=== PATIENT | female | born 1945 | race Caucasian/White ===

== ENCOUNTER → 2017-09-05 | Day surgery (SDC) | payer OTHER ==
[2017-08-21 09:21] VITALS: BMI 32.0
--- NOTE | 2017-08-21 09:59 | PAT Medication Instructions ---
Service Date Aug 21, 2017. Current Home Medication List Acetaminophen (Tylenol), 650 MG PO PRN Albuterol Hfa (Ventolin Hfa), 2-4 PUFFS INH Q6H PRN for SOB/Wheezing Carbidopa/Levodopa (Sinemet 25MG/100MG), 1 TAB PO 5XADAY Cetirizine (Zyrtec), 10 MG PO PRN Cholecalciferol (Vitamin D3), 1 TAB PO QAM Duloxetine Hcl (Cymbalta), 60 MG PO QAM Esomeprazole Magnesium (Nexium), 40 MG PO QAM Ferrous Sulfate (Ferrous Sulfate), 325 MG PO QAM Fluticasone Furoate-Vilanterol (Breo Ellipta), 1 PUFF INH QAM Fluticasone Propionate (Nasal) (Flonase Allergy Relief), 2 SPRAYS INTNAS QAM Gabapentin (Neurontin), 100 MG PO TID Gabapentin (Neurontin), 800 MG PO TID Ketorolac Tromethamine (Ophth) (Acuvail), 1 DROP OPR HS Levothyroxine Sodium (Levothyroxine Sodium), 1 TAB PO QAM Losartan Potassium (Cozaar), 25 MG PO QAM Meloxicam (Mobic), 7.5 MG PO QAM Montelukast Sodium (Singulair), 10 MG PO HS Multivitamin (Multivitamin), 1 TAB PO QAM Pseudoephedrine-Guaifenesin (Mucinex D), 1 TAB PO BID PRN for PRN Pyridoxine (Vitamin B6), 100 MG PO QPM Ropinirole (Requip), 0.25-0.5 MG PO HS Travoprost (Travatan Z), 1 DROPS OPB BID [Nasal Saline], 2 SPRAYS INTNAS BID PRN for senior lead developer Instructions For Your Scheduled Surgery = Check with surgeon for instructions: Meloxicam (Mobic), 7.5 MG PO QAM - Hold the following medications the night prior to surgery: Ropinirole (Requip), 0.25-0.5 MG PO HS - Hold the following medications the morning of surgery: Cetirizine (Zyrtec), 10 MG PO PRN Cholecalciferol (Vitamin D3), 1 TAB PO QAM Ferrous Sulfate (Ferrous Sulfate), 325 MG PO QAM Losartan Potassium (Cozaar), 25 MG PO QAM Multivitamin (Multivitamin), 1 TAB PO QAM Pseudoephedrine-Guaifenesin (Mucinex D), 1 TAB PO BID PRN for PRN - Take the following medications the morning of surgery with a sip of water: [Nasal Saline], 2 SPRAYS INTNAS BID PRN for RN (if needed) Travoprost (Travatan Z), 1 DROPS OPB BID Levothyroxine Sodium (Levothyroxine Sodium), 1 TAB PO QAM Gabapentin (Neurontin), 100 MG PO TID Gabapentin (Neurontin), 800 MG PO TID Fluticasone Furoate-Vilanterol (Breo Ellipta), 1 PUFF INH QAM Fluticasone Propionate (Nasal) (Flonase Allergy Relief), 2 SPRAYS INTNAS QAM Esomeprazole Magnesium (Nexium), 40 MG PO QAM Duloxetine Hcl (Cymbalta), 60 MG PO QAM Acetaminophen (Tylenol), 650 MG PO PRN (if needed) Albuterol Hfa (Ventolin Hfa), 2-4 PUFFS INH Q6H PRN for SOB/Wheezing (if needed) Carbidopa/Levodopa (Sinemet 25MG/100MG), 1 TAB PO 5XADAY If you have any questions please call us at [phone] or [phone] or [phone]
--- NOTE | 2017-08-21 10:46 | DIAGNOSTIC IMAGING REPORT ---
CHEST 2 VIEWS ROUTINE CLINICAL HISTORY: Chronic cough. Preoperative chest. COMPARISON STUDY: February 2016 FINDINGS: The heart remains enlarged. There is aortic tortuosity. There is no failure. There is no focal pulmonary consolidation. There is stable linear scar/atelectatic change at the left lung base, as well as within the substernal region.[ Postsurgical changes are present within the lumbar spine. No pleural effusions are visualized. IMPRESSION: No active disease in the chest. Electronically signed by: Alejo Dobbins M.D. 08/21/2017 10:44 AM Dictated Date/Time: 08/21/2017 10:44 AM
[2017-08-21 10:52] LABS: BASO % 0.5 %; BASO ABS # 0.04 K/uL (0-0.2); EOS % 3.2 %; EOS ABS # 0.24 K/uL (0-0.5); HEMOGLOBIN 12.9 g/dL (12.0-16.0); IG# 0.01 K/uL (0.00-0.02); LYMPH % 25.5 %; LYMPH ABS # 1.92 K/uL (1.2-3.4); MEAN CORPUSCULAR HGB CONC 32.3 g/dl (32-36); MEAN PLATELET VOLUME 9.7 fL (7.4-10.4); MONO % 6.8 %; MONO ABS # 0.51 K/uL (0.11-0.59); NEUT % 63.9 %; NEUT ABS # 4.81 K/uL (1.4-6.5); PLATELET COUNT 320 K/uL (130-400); RED CELL DISTRIBUTION WIDTH CV 13.8 % (11.5-14.5); RED CELL DISTRIBUTION WIDTH SD 46.7 fL (36.4-46.3); WHITE BLOOD COUNT 7.53 K/uL (4.8-10.8)
[2017-08-21 12:05] LABS: CALCIUM 8.6 mg/dl (8.5-10.1); CREATININE 0.66 mg/dl (0.60-1.20); POTASSIUM 4.1 mmol/L (3.5-5.1)
[~2017-09-05] VITALS: Ht 157.5 cm; Wt 79.3 kg
[~2017-09-05] MED LIST: ACET-1311 PO; ACETAMINOPHEN 325 MG TAB PO PRN; ATROPINE SULFATE 0.1 MG/ML 5ML SYR IV PRN; BACITRACIN 50000 UNIT VIAL ONE; BUPIVACAINE/EPINEPHRINE 0.5% MPF 1:200,000 30 ML VIAL ONE; CARB25TA12 PO; CEFAZOLIN 1000MG IV PUSH 7.5 ML IV SCH; CETI10TA84 PO; CHOL1000 PO; DEXAMETHASONE SOD INJ 4 MG/ML VIAL ONE; DULO60CA44 PO; EpHEDrine SULFATE INJ 50 MG/ML AMP IV PRN; FENTANYL CITRATE INJ 50 MCG/1 ML 2 ML VIAL IV PRN; FENTANYL CITRATE INJ 50 MCG/1 ML 2 ML VIAL ONE; FERR1TAB62 PO; FLUT0.15 INTNAS; FLUT1INH INH; GABA-112 PO; GABA800T PO; GLYCOPYRROLATE INJ 0.2 MG/ML VIAL ONE; HYDR-5688 PO; HYDROCODONE/ACETAMIN 5/325MG TAB PO PRN; HYDROmorphone INJ 1 MG/ML SYR IV PRN; HYDROmorphone INJ 2 MG/ML SYR/VIAL IV PRN; HYDROmorphone INJ 2 MG/ML SYR/VIAL ONE; KETO0.45 OPR; KETOROLAC TROMETHAMINE 15 MG/ML VIAL IV. PRN; KETOROLAC TROMETHAMINE 30 MG/ML VIAL ONE; LABETALOL HCL IV 5 MG/ML 20ML IV PRN; LACTATED RINGER'S 1000ML 1,000 ML IV SCH; LEVO25TA5 PO; LIDOCAINE HCL 2% 2 ML VIAL (20MG/ML) ONE; LOSA1TAB PO; MELO7.5T5 PO; MEPERIDINE HCL 25 MG/ML CARP IV PRN; METOCLOPRAMIDE HCL INJ 5 MG/ML 2 ML VIAL ONE; MIDAZOLAM HCL 1 MG/ML 2ML VIAL ONE; MONT1TAB3 PO; MULT-506 PO; NASAL SALINE INTNAS; NEOSTIGMINE METHYLSULFATE 1 MG/ML 10ML VIAL ONE; NURSING VERBAL MED ORDER ONE; NXM/40 PO; ONDANSETRON INJ 2 MG/ML 2 ML VIAL IV PRN; ONDANSETRON INJ 2 MG/ML 2 ML VIAL ONE; PROPOFOL IV EMULSION 10 MG/ML 20 ML VIAL IV ONE; PSEU60TA80 PO; PYRI100T4 PO; ROCURONIUM BROMIDE 10 MG/ML 5 ML VIAL IV ONE; ROPI0.25 PO; TRAV0.00 OPB; VNTHFA/IN INH
[2017-09-05 06:20] VITALS: Ht 157.5 cm; Wt 79.3 kg
--- NOTE | 2017-09-05 07:34 | History & Physical Bridge Note ---
H&P Re-Evaluation Bridge Note: I have examined the patient, reviewed the History & Physical and in the interval since the performance of the History & Physical I have noted the following changes of clinical significance: No changes noted
--- NOTE | 2017-09-05 07:35 | History and Physical ---
History & Physical Date Sep 05, 2017. Chief Complaint Chronic back and leg pain History of Present Illness The patient is a 72 year old female with complaints of chronic back and leg pain Past Medical/Surgical History Medical Problems: (1) Lumbar stenosis with neurogenic claudication Additional History Hepatic Disease: No Endocrine Disorder: No Kidney Disease: No Hypertension: Yes Heart Disease: No Bleeding Tendencies: No Infectious Diseases: No Allergies Coded Allergies: Oxycodone (Verified Allergy, Unknown, HEADACHES, 09/05/17) Terbinafine (Verified Allergy, Unknown, HIVES, 09/05/17) Home Medications Scheduled Acetaminophen (Tylenol), 650 MG PO PRN Carbidopa/Levodopa (Sinemet 25MG/100MG), 1 TAB PO 5XADAY Cetirizine (Zyrtec), 10 MG PO PRN Cholecalciferol (Vitamin D3), 1 TAB PO QAM Duloxetine Hcl (Cymbalta), 60 MG PO QAM Esomeprazole Magnesium (Nexium), 40 MG PO QAM Ferrous Sulfate (Ferrous Sulfate), 325 MG PO QAM Fluticasone Furoate-Vilanterol (Breo Ellipta), 1 PUFF INH QAM Fluticasone Propionate (Nasal) (Flonase Allergy Relief), 2 SPRAYS INTNAS QAM Gabapentin (Neurontin), 100 MG PO TID Gabapentin (Neurontin), 800 MG PO TID Ketorolac Tromethamine (Ophth) (Acuvail), 1 DROP OPR HS Levothyroxine Sodium (Levothyroxine Sodium), 1 TAB PO QAM Losartan Potassium (Cozaar), 25 MG PO QAM Meloxicam (Mobic), 7.5 MG PO QAM Montelukast Sodium (Singulair), 10 MG PO HS Multivitamin (Multivitamin), 1 TAB PO QAM Pyridoxine (Vitamin B6), 100 MG PO QPM Ropinirole (Requip), 0.25-0.5 MG PO HS Travoprost (Travatan Z), 1 DROPS OPB BID Scheduled PRN Albuterol Hfa (Ventolin Hfa), 2-4 PUFFS INH Q6H PRN for SOB/Wheezing Pseudoephedrine-Guaifenesin (Mucinex D), 1 TAB PO BID PRN for PRN [Nasal Saline], 2 SPRAYS INTNAS BID PRN for RN Physical Examination Skin: warm/dry, no rash Eyes: normal inspection, EOMI, sclerae normal ENT: normal ENT inspection, pharynx normal Head: normocephalic, atraumatic Neck: supple, no adenopathy, trachea midline Respiratory/Chest: lungs clear, normal breath sounds, no respiratory distress Cardiovascular: regular rate, rhythm, no edema, no murmur Abdomen / GI: normal bowel sounds, non tender Back: normal inspection Extremities: normal inspection, normal range of motion Neurologic/Psych: no motor/sensory deficits, alert, normal reflexes, oriented x 3 Diagnosis Chronic back and leg pain Plan of Treatment Spinal cord stimulator trial
--- NOTE | 2017-09-05 08:36 | [facility] Operative Report ---
Operative Report Operative Date Sep 05, 2017. Pre-Operative Diagnosis Chronic back and leg pain Post-Operative Diagnosis Chronic back and leg pain Procedure(s) Performed 1. T10 laminotomy. #2 implantation of spinal cord stimulator paddle with temporary leads. Surgeon Dr. Swartz Perianesthesia Manager Surgeon(s) Starla Simon PA-C Estimated Blood Loss 10 ml Findings Findings consistent with diagnosis Specimens None per surgeon Anesthesia Type General Description of Procedure Patient was met with preoperatively case discussed all questions addressed. After informed consent obtained patient was taken to the operative suite underwent intubation and placed in a prone position on the Danilo table on top of the Favio frame. All bony prominences were well-padded eyes inspected to ensure no external pressure placed upon them. This point the thoracolumbar spine was prepped and draped in the normal sterile fashion. With the assistance of fluoroscopy identified the T10-11 disc space. A midline incision was created overlying this region. Sharp dissection with the assistance of Bovie cautery was performed down to and exposing the interlaminar space. A self -retaining ring retractor was placed. I verified my position with fluoroscopy. A midline T10 laminotomy was then performed. Was able to place a 16-lead dorsal column stimulator paddle within the canal. Verify our position with fluoroscopy. Temporary leads were then attached and via a trocar placed to the left flank. The system was tested for efficacy. Incision was then copious irrigated and closed with subcutaneous Vicryl and 4-0 Monocryl for final skin closure. Steri-Strips sterile dressings placed. Patient weakened taken back in stable condition. Please note Starla Haas present throughout the entire procedure involved in patient positioning complex portions of the surgery and fashion closure. I attest to the content of the Intraoperative Record and any orders documented therein. Any exceptions are noted below.
--- NOTE | 2017-09-05 08:41 | Discharge Instructions ---
Discharge Instructions Date of Service Sep 05, 2017. Admission Reason for Admission: Lumbar Postlaminectomy Syndrome Discharge Discharge Diagnosis / Problem: chronic pain Discharge Goals Goal(s): Decrease discomfort Activity Recommendations Activity Limitations: per Instructions/Follow-up section . Instructions / Follow-Up Instructions / Follow-Up ACTIVITY RECOMMENDATIONS: SELF CARE INSTRUCTIONS AFTER A LAMINECTOMY 1. No prolonged sitting (less than 30 minutes for the first 3 weeks after surgery). 2. No bending, lifting more than 5 pounds, or twisting (roll like a log when turning in bed). 3. You may shower 3 days after surgery if no drainage from wound. Thoroughly dry wound. Do not soak in the tub. 4. Please walk as much as you can for exercise. Gradually increase the distance that you walk as your endurance increases. 5. You may drive in 7-10 days if you are comfortable and no longer requiring pain medications. SPECIAL CARE INSTRUCTIONS: VERY IMPORTANT TO READ AND REVIEW A. Your surgical incision has been closed with a cosmetic suture under the skin that will dissolve in about 6 weeks. In 14 days, you can use a pair of clean scissors and cut the suture that is left outside of the skin at the ends of your incision. B. Complications are uncommon, but please contact us if you have any signs or symptoms of: 1. wound infection (fever higher than 102.5 degrees F, redness, separation of wound, drainage, or increasing pain from the incision) 2. blood clots in legs (pain, swelling, redness and warmth in legs) 3. urinary tract infection (fever higher than 102.5 degrees, burning upon urination or increased frequency of urination) 4. nerve problems (inability to walk on your toes or heels, numbness, loss of bowel or bladder control) 5. any other symptoms that concern you. C. Please call the office at if you have any concerns or questions about your operation or recovery. MANAGING PAIN AFTER SPINAL SURGERY 1. Narcotic medication is intended for short-term use and will be provided for surgical pain. Surgical pain usually lasts for a period of 4-6 weeks. Narcotic medication includes Percocet, Vicodin, Darvocet, Tylenol #3 or Lortab. 2. Longer-term pain is more appropriately treated with non-narcotic medication such as Tylenol ES. 3. Muscle spasm is not appropriately treated with narcotics. Muscle relaxers such as Soma, Flexeril or Skelaxin can be used along with Tylenol ES. 4. Remember that we all live with some "aches and pains". This is not unusual or uncommon after an injury or as we get older. 5. We will provide appropriate medication within the normal guidelines of their prescribed use. We will also be very cautious and aware of potential abuse and extended duration of patients' medication needs. 6. Please allow 2-3 days to process refills. Prescriptions will not be mailed but must be picked up at the office. FOLLOW UP VISIT: Keep your scheduled follow-up appointment. Any questions, please call the office at . Current Hospital Diet Patient's current hospital diet: Discharge Diet Recommended Diet: Regular Diet Procedures Procedures Performed: 1. T10 laminotomy. #2 implantation of spinal cord stimulator paddle with temporary leads. Pending Studies Studies pending at discharge: no Medical Emergencies . Who to Call and When: Medical Emergencies: If at any time you feel your situation is an emergency, please call 911 immediately. . Non-Emergent Contact Non-Emergency issues call your: Primary Care Provider . "Provider Documentation" section prepared by Preet Swartz. .
--- NOTE | 2017-09-05 08:48 | DIAGNOSTIC IMAGING REPORT ---
SPINE ONE VIEW, ANY LEVEL HISTORY: 72 years-old Female SPINAL STIM TRIAL status post placement of a spinal cord stimulator device COMPARISON: Spot fluoroscopic images of the lumbar spine 04/26/2016 TECHNIQUE: Single AP projection of the spine was utilized with 19.2 seconds fluoroscopy time FINDINGS: Dual lead spinal stimulator device is noted overlying the midline of the lower thoracic spine, exact level not confirmed secondary to only 1 zoomed image submitted for review. Orthopedic retraction device overlies the spine. IMPRESSION: Fluoroscopic assistance as above. Please see operative report for further details. The above report was generated using voice recognition software. It may contain grammatical, syntax or spelling errors. Electronically signed by: Kedar Floyd M.D. 09/05/2017 8:47 AM Dictated Date/Time: 09/05/2017 8:45 AM
--- NOTE | 2017-09-05 09:36 | Anesthesiology Progress Note ---
Anesthesia Post Op Note Date & Time Sep 05, 2017 at 09:35 Vital Signs Pain Intensity: 5.0 Vital Signs Past 12 Hours Date Time Temp Pulse Resp B/P (MAP) Pulse Ox O2 Delivery O2 Flow Rate FiO2 09/05/17 09:11 171/83 09/05/17 09:07 71 16 09/05/17 09:07 91 16 93 09/05/17 09:06 162/78 09/05/17 09:02 90 21 97 09/05/17 09:02 79 21 09/05/17 09:01 178/75 09/05/17 08:57 80 17 99 09/05/17 08:57 81 17 09/05/17 08:56 202/77 09/05/17 08:54 185/78 09/05/17 08:52 87 15 142/113 97 09/05/17 08:52 87 15 09/05/17 08:52 36.5 87 14 185/78 99 Oxymask 10 Notes Mental Status: alert / awake / arousable, participated in evaluation Pt Amnestic to Procedure: Yes Nausea / Vomiting: adequately controlled Pain: adequately controlled Airway Patency, RR, SpO2: stable & adequate BP & HR: stable & adequate Hydration State: stable & adequate Anesthetic Complications: no major complications apparent
[2017-09-05 09:59] VITALS: TEMP 36.8
[2017-09-05 10:02] VITALS: BP 132/91; PULSE 52; O2SAT 93
[2017-09-05 10:32] VITALS: BP 164/90; PULSE 50; O2SAT 95
== END | disposition home or self-care (01) ==
LOC: C.ACU 07:45
PROVIDERS: ATTEND Orthopaedic Surgery Orthopaedic Surgery of the Spine
DX: M54.9 Dorsalgia, unspecified (principal); G89.29 Other chronic pain; M79.606 Pain in leg, unspecified; J45.30 Mild persistent asthma, uncomplicated; I10 Essential (primary) hypertension; F32.9 Major depressive disorder, single episode, unspecified; F41.8 Other specified anxiety disorders; E03.8 Other specified hypothyroidism; E66.9 Obesity, unspecified; Z68.32 Body mass index [BMI] 32.0-32.9, adult; Z88.5 Allergy status to narcotic agent; Z79.899 Other long term (current) drug therapy; Z90.89 Acquired absence of other organs; Z98.890 Other specified postprocedural states; Z98.41 Cataract extraction status, right eye; Z98.42 Cataract extraction status, left eye; Z82.49 Family history of ischemic heart disease and other diseases of the circulatory system; Z82.3 Family history of stroke; Z83.3 Family history of diabetes mellitus

== ENCOUNTER → 2017-09-19 | Day surgery (SDC) | payer OTHER ==
[2017-08-21 09:31] VITALS: BMI 32.0
[~2017-09-19] VITALS: Ht 157.5 cm; Wt 79.3 kg
[~2017-09-19] MED LIST changes: +EpHEDrine SULFATE 50MG/5ML SYR ONE; +FLOSEAL HEMOSTATIC MATRIX 10ML TOP ONE; -KETOROLAC TROMETHAMINE 15 MG/ML VIAL IV. PRN; -KETOROLAC TROMETHAMINE 30 MG/ML VIAL ONE; -LABETALOL HCL IV 5 MG/ML 20ML IV PRN; -MEPERIDINE HCL 25 MG/ML CARP IV PRN; -METOCLOPRAMIDE HCL INJ 5 MG/ML 2 ML VIAL ONE; -NURSING VERBAL MED ORDER ONE; +PHENYLEPHRINE 100MCG/ML 5ML SYR ONE; -ROCURONIUM BROMIDE 10 MG/ML 5 ML VIAL IV ONE
[2017-09-19 05:56] VITALS: BP 140/74; PULSE 62; TEMP 36.8; O2SAT 95; Ht 157.5 cm; Wt 79.3 kg
--- NOTE | 2017-09-19 07:26 | History and Physical ---
History & Physical Date Sep 19, 2017. Chief Complaint Chronic back and leg pain History of Present Illness The patient is a 72 year old female with complaints of chronic back and leg pain Past Medical/Surgical History Medical Problems: (1) Lumbar stenosis with neurogenic claudication Additional History Hepatic Disease: No Endocrine Disorder: No Kidney Disease: No Hypertension: No Heart Disease: No Bleeding Tendencies: No Infectious Diseases: No Allergies Coded Allergies: Terbinafine (Verified Allergy, Unknown, HIVES, 09/19/17) Oxycodone (Verified Adverse Reaction, Unknown, HEADACHES, 09/19/17) Home Medications Scheduled Acetaminophen (Tylenol), 650 MG PO PRN Carbidopa/Levodopa (Sinemet 25MG/100MG), 1 TAB PO 5XADAY Cetirizine (Zyrtec), 10 MG PO PRN Cholecalciferol (Vitamin D3), 1 TAB PO QAM Duloxetine Hcl (Cymbalta), 60 MG PO QAM Esomeprazole Magnesium (Nexium), 40 MG PO QAM Ferrous Sulfate (Ferrous Sulfate), 325 MG PO QAM Fluticasone Furoate-Vilanterol (Breo Ellipta), 1 PUFF INH QAM Fluticasone Propionate (Nasal) (Flonase Allergy Relief), 2 SPRAYS INTNAS QAM Gabapentin (Neurontin), 100 MG PO TID Gabapentin (Neurontin), 800 MG PO TID Ketorolac Tromethamine (Ophth) (Acuvail), 1 DROP OPR HS Levothyroxine Sodium (Levothyroxine Sodium), 1 TAB PO QAM Losartan Potassium (Cozaar), 25 MG PO QAM Meloxicam (Mobic), 7.5 MG PO QAM Montelukast Sodium (Singulair), 10 MG PO HS Multivitamin (Multivitamin), 1 TAB PO QAM Pyridoxine (Vitamin B6), 100 MG PO QPM Ropinirole (Requip), 0.25-0.5 MG PO HS Travoprost (Travatan Z), 1 DROPS OPB BID Scheduled PRN Albuterol Hfa (Ventolin Hfa), 2-4 PUFFS INH Q6H PRN for SOB/Wheezing Hydrocodone/Acetaminophen 5MG/325MG ([place] 5MG/325MG), 1 TAB PO TID PRN for Pain Pseudoephedrine-Guaifenesin (Mucinex D), 1 TAB PO BID PRN for PRN [Nasal Saline], 2 SPRAYS INTNAS BID PRN for RN Physical Examination Skin: warm/dry, no rash Eyes: normal inspection, EOMI, sclerae normal ENT: normal ENT inspection, pharynx normal Head: normocephalic, atraumatic Neck: supple, no adenopathy, trachea midline Respiratory/Chest: lungs clear, normal breath sounds, no respiratory distress Cardiovascular: regular rate, rhythm, no edema, no murmur Abdomen / GI: normal bowel sounds, non tender Back: normal inspection Extremities: normal inspection, normal range of motion Neurologic/Psych: no motor/sensory deficits, alert, normal reflexes, oriented x 3 Diagnosis Chronic back and leg pain Plan of Treatment Spinal cord stimulator placement
--- NOTE | 2017-09-19 08:16 | [facility] Operative Report ---
Operative Report Operative Date Sep 19, 2017. Pre-Operative Diagnosis Lumbar Postlaminectomy Syndrome Post-Operative Diagnosis Same Procedure(s) Performed 1. Removal of temporary dorsal column stimulator leads. #2 implantation of spinal cord stimulator battery Surgeon Dr. Swartz Lead Java Developer Architect Surgeon(s) Starla Simon PA-C Estimated Blood Loss 25 Specimens none per surgeon Description of Procedure Patient was met with preoperatively case discussed all questions addressed. After informed consent obtained patient was taken to the operative suite underwent intubation and placed in the prone position on the Danilo table on top of the Favio frame. All bony prominences well-padded eyes inspected to ensure no external pressure placed upon them. This point the thoracolumbar spine was prepped and draped in the normal sterile fashion. Sharp dissection with the assistance of Bovie cautery was performed down to and exposing the T10 laminotomy site. A temporary leads were identified and removed. I then created a pocket of the right flank large enough with the stimulator battery. Using a trocar the leads were taken to the battery pocket attached the battery and tested for contact in efficacy. The battery was placed within the pocket incision copiously irrigated and closed with subcutaneous Vicryl and 4-0 Monocryl for fashion closure. Steri-Strips sterile dressings placed. Patient will continue to PACU stable condition. Please note Starla Haas was present throughout the entire procedure involved in patient positioning complex portions of the surgery and fashion closure. I attest to the content of the Intraoperative Record and any orders documented therein. Any exceptions are noted below.
--- NOTE | 2017-09-19 08:18 | Discharge Instructions ---
Discharge Instructions Date of Service Sep 19, 2017. Admission Reason for Admission: Lumbar Postlaminectomy Syndrome Discharge Discharge Diagnosis / Problem: chronic back pain Discharge Goals Goal(s): Decrease discomfort Activity Recommendations Activity Limitations: per Instructions/Follow-up section . Instructions / Follow-Up Instructions / Follow-Up ACTIVITY RECOMMENDATIONS: SELF CARE INSTRUCTIONS AFTER A LAMINECTOMY 1. No prolonged sitting (less than 30 minutes for the first 3 weeks after surgery). 2. No bending, lifting more than 5 pounds, or twisting (roll like a log when turning in bed). 3. You may shower 3 days after surgery if no drainage from wound. Thoroughly dry wound. Do not soak in the tub. 4. Please walk as much as you can for exercise. Gradually increase the distance that you walk as your endurance increases. 5. You may drive in 7-10 days if you are comfortable and no longer requiring pain medications. SPECIAL CARE INSTRUCTIONS: VERY IMPORTANT TO READ AND REVIEW A. Your surgical incision has been closed with a cosmetic suture under the skin that will dissolve in about 6 weeks. In 14 days, you can use a pair of clean scissors and cut the suture that is left outside of the skin at the ends of your incision. B. Complications are uncommon, but please contact us if you have any signs or symptoms of: 1. wound infection (fever higher than 102.5 degrees F, redness, separation of wound, drainage, or increasing pain from the incision) 2. blood clots in legs (pain, swelling, redness and warmth in legs) 3. urinary tract infection (fever higher than 102.5 degrees, burning upon urination or increased frequency of urination) 4. nerve problems (inability to walk on your toes or heels, numbness, loss of bowel or bladder control) 5. any other symptoms that concern you. C. Please call the office at if you have any concerns or questions about your operation or recovery. MANAGING PAIN AFTER SPINAL SURGERY 1. Narcotic medication is intended for short-term use and will be provided for surgical pain. Surgical pain usually lasts for a period of 4-6 weeks. Narcotic medication includes Percocet, Vicodin, Darvocet, Tylenol #3 or Lortab. 2. Longer-term pain is more appropriately treated with non-narcotic medication such as Tylenol ES. 3. Muscle spasm is not appropriately treated with narcotics. Muscle relaxers such as Soma, Flexeril or Skelaxin can be used along with Tylenol ES. 4. Remember that we all live with some "aches and pains". This is not unusual or uncommon after an injury or as we get older. 5. We will provide appropriate medication within the normal guidelines of their prescribed use. We will also be very cautious and aware of potential abuse and extended duration of patients' medication needs. 6. Please allow 2-3 days to process refills. Prescriptions will not be mailed but must be picked up at the office. FOLLOW UP VISIT: Keep your scheduled follow-up appointment. Any questions, please call the office at . Current Hospital Diet Patient's current hospital diet: Discharge Diet Recommended Diet: Regular Diet Procedures Procedures Performed: 1. Removal of temporary dorsal column stimulator leads. #2 implantation of spinal cord stimulator battery Pending Studies Studies pending at discharge: no Medical Emergencies . Who to Call and When: Medical Emergencies: If at any time you feel your situation is an emergency, please call 911 immediately. . Non-Emergent Contact Non-Emergency issues call your: Primary Care Provider . "Provider Documentation" section prepared by Preet Swartz. .
--- NOTE | 2017-09-19 09:18 | Anesthesiology Progress Note ---
Anesthesia Post Op Note Date & Time Sep 19, 2017 at 09:17 Vital Signs Pain Intensity: 0 Vital Signs Past 12 Hours Date Time Temp Pulse Resp B/P (MAP) Pulse Ox O2 Delivery O2 Flow Rate FiO2 09/19/17 09:15 36.6 83 16 152/83 95 Oxymask 3 09/19/17 09:05 85 16 168/79 95 Oxymask 3 09/19/17 08:55 85 16 141/87 97 Oxymask 3 09/19/17 08:45 98 16 183/93 98 Oxymask 5 09/19/17 08:37 36.8 95 16 193/111 98 Oxymask 5 09/19/17 05:56 36.8 62 18 140/74 (96) 95 Room Air Notes Mental Status: alert / awake / arousable, participated in evaluation Pt Amnestic to Procedure: Yes Nausea / Vomiting: adequately controlled Pain: adequately controlled Airway Patency, RR, SpO2: stable & adequate BP & HR: stable & adequate Hydration State: stable & adequate Anesthetic Complications: no major complications apparent
[2017-09-19 09:50] VITALS: BP 154/66; PULSE 73; TEMP 36.3; O2SAT 95
== END | disposition home or self-care (01) ==
LOC: C.ACU 05:26
PROVIDERS: ATTEND Orthopaedic Surgery Orthopaedic Surgery of the Spine
DX: M96.1 Postlaminectomy syndrome, not elsewhere classified (principal); J45.909 Unspecified asthma, uncomplicated; I10 Essential (primary) hypertension; E03.9 Hypothyroidism, unspecified; Z88.5 Allergy status to narcotic agent

== ENCOUNTER 2018-10-30 06:35 | Inpatient (IN) ==
--- NOTE | 2018-10-29 21:12 | History and Physical Report ---
DATE OF ADMISSION: 10/30/2018 CHIEF COMPLAINT: Chronic right shoulder dislocation. HISTORY OF PRESENT ILLNESS: This is a 73-year-old female complaining of right shoulder chronic dislocation for approximately 2 weeks now. On 10/22/2018, the patient apparently fell at home dislocating her shoulder. She was transported to the Emergency Department where it was reduced. The following day, her shoulder dislocated again without any trauma. She returned to the Emergency Department and they unsuccessfully tried multiple times to reduce her shoulder and it would not reduce. A CT scan showed chronic dislocation, bony Bankart lesion, Hill-Sachs with avulsion fracture. In order to correct it, the patient was educated on the risks, benefits, and outcome of a right reversed total shoulder arthroplasty, which would probably be the best option for her at her age. The patient wished to proceed. PAST MEDICAL HISTORY: Hypertension, hypercholesterolemia, asthma, sleep apnea, peripheral neuropathy, hypothyroidism, anemia, osteoarthritis, neck problems, spine problems, upper back problems, sciatica, acid reflux, obesity, top dentures. SOCIAL HISTORY: Nonsmoker, nondrinker. PAST SURGICAL HISTORY: Left ankle, spine surgery, and a neurotransmitter placement. FAMILY HISTORY: Noncontributory. REVIEW OF SYSTEMS: Multiple dislocations of her right shoulder with unsuccessful reductions. MEDICATIONS: 1. Tylenol as needed. 2. Acuvail 0.45% solution 1 drop in the right eye at bedtime. 3. Albuterol 108 mcg inhaler 2 puffs every 4 hours as needed. 4. Baclofen 10 mg at nighttime. 5. Fluticasone 1 puff by mouth daily 100/25 mcg. 6. Carbidopa/levodopa 25/100 one tablet 4-5 times daily. 7. Zyrtec 10, 0.5 tablet daily. 8. Duloxetine 60 mg daily. 9. Fluticasone 50 mcg actuation 2 sprays each nostril twice daily. 10. Gabapentin 100 mg 3 times daily. 11. Levothyroxine 25 mcg daily. 12. Losartan 25 mg daily. 13. Meloxicam 7.5 mg daily. 14. Montelukast 10 mg daily. 15. Mucinex 600 mg 2 pills as needed. 16. Nasal saline 0.65% solution every morning and then every 2-4 hours after as needed. 17. Ocuvite Extra daily. 18. Requip 0.25 mg 2 tablets at night. 19. Travatan 0.004% solution 1 drop in both eyes twice daily. 20. Vitamin D daily. ALLERGIES: No known drug allergies. PHYSICAL EXAMINATION: GENERAL: Well-developed, well-nourished, 73-year-old female in no acute distress. She is alert and oriented x3 and pleasant. HEENT: Normocephalic, atraumatic. Extraocular motions are intact. Pupils are equal and reactive to light. HEART: Regular rate and rhythm, no murmurs appreciated. LUNGS: Clear. ABDOMEN: Soft and nontender. Bowel sounds present. EXTREMITIES: Right upper extremity, she is neurologically and neurovascularly intact. She has the deformity of a chronic anterior dislocation. Skin is intact. There is no bruising or ecchymosis. Her fingers were mobile. Range of motion and strength of her shoulder were deferred. DIAGNOSES: Chronically dislocated right shoulder with unsuccessful reductions. She has a history of hypertension, hypercholesterolemia, asthma, sleep apnea, peripheral neuropathy, hypothyroidism, anemia, osteoarthritis, spine problems, neck problems, upper back problems, sciatica, acid reflux, obesity, and top dentures. PLAN: The patient was advised of her diagnosis. Indications, risks, benefits, postop course have all been reviewed. The patient wished to proceed with a right reverse total shoulder arthroplasty. Necessary consent forms, preoperative testing, and clearances will be obtained.
[~2018-10-30 06:35] MED LIST changes: -ACET-1311 PO; -ACETAMINOPHEN 325 MG TAB PO PRN; +ACETAMINOPHEN 500 MG TAB PO SCH; -ATROPINE SULFATE 0.1 MG/ML 5ML SYR IV PRN; -BACITRACIN 50000 UNIT VIAL ONE; -BUPIVACAINE/EPINEPHRINE 0.5% MPF 1:200,000 30 ML VIAL ONE; -CARB25TA12 PO; +CEFAZOLIN 1000MG 1,000 MG/7.5 ML SYR IV SCH; -CEFAZOLIN 1000MG IV PUSH 7.5 ML IV SCH; -CETI10TA84 PO; -CHOL1000 PO; +CeleBREX 200 MG CAP PO SCH; -DEXAMETHASONE SOD INJ 4 MG/ML VIAL ONE; -DULO60CA44 PO; -EpHEDrine SULFATE 50MG/5ML SYR ONE; -EpHEDrine SULFATE INJ 50 MG/ML AMP IV PRN; +FAMOTIDINE 20 MG TAB PO SCH; -FENTANYL CITRATE INJ 50 MCG/1 ML 2 ML VIAL IV PRN; -FENTANYL CITRATE INJ 50 MCG/1 ML 2 ML VIAL ONE; -FERR1TAB62 PO; -FLOSEAL HEMOSTATIC MATRIX 10ML TOP ONE; -FLUT0.15 INTNAS; -FLUT1INH INH; -GABA-112 PO; -GABA800T PO; +GABAPENTIN 300 MG PO SCH; -GLYCOPYRROLATE INJ 0.2 MG/ML VIAL ONE; -HYDR-5688 PO; -HYDROCODONE/ACETAMIN 5/325MG TAB PO PRN; -HYDROmorphone INJ 1 MG/ML SYR IV PRN; -HYDROmorphone INJ 2 MG/ML SYR/VIAL IV PRN; -HYDROmorphone INJ 2 MG/ML SYR/VIAL ONE; -KETO0.45 OPR; -LACTATED RINGER'S 1000ML 1,000 ML IV SCH; -LEVO25TA5 PO; -LIDOCAINE HCL 2% 2 ML VIAL (20MG/ML) ONE; -LOSA1TAB PO; +LR 15ML/HR IV SCH; -MELO7.5T5 PO; +METOCLOPRAMIDE HCL 10 MG TABLET PO SCH; -MIDAZOLAM HCL 1 MG/ML 2ML VIAL ONE; -MONT1TAB3 PO; -MULT-506 PO; -NASAL SALINE INTNAS; -NEOSTIGMINE METHYLSULFATE 1 MG/ML 10ML VIAL ONE; -NXM/40 PO; -ONDANSETRON INJ 2 MG/ML 2 ML VIAL IV PRN; -ONDANSETRON INJ 2 MG/ML 2 ML VIAL ONE; -PHENYLEPHRINE 100MCG/ML 5ML SYR ONE; -PROPOFOL IV EMULSION 10 MG/ML 20 ML VIAL IV ONE; -PSEU60TA80 PO; -PYRI100T4 PO; -ROPI0.25 PO; +ROPIVACAINE 0.5% 5 MG/ML 30 ML VIAL ONE; -TRAV0.00 OPB; -VNTHFA/IN INH; +dexAMETHasone 4 MG TAB PO SCH
[2018-10-30] MEDS ORDERED: fentaNYL citrate 100 MCG/2 ML VIAL ONE ×2 (06:39→09:21)
[2018-10-30] MEDS ORDERED: MIDAZOLAM HCL 1 MG/ML 2ML VIAL ONE (06:39)
[2018-10-30] MEDS ORDERED: DEXAMETHASONE SOD INJ 4 MG/ML VIAL ONE (06:49)
[2018-10-30] MEDS ORDERED: ONDANSETRON INJ 2 MG/ML 2 ML VIAL ONE (06:49)
[2018-10-30] MEDS ORDERED: LIDOCAINE HCL 2% 2 ML VIAL/AMP(20MG/ML) INFIL ONE (06:49)
[2018-10-30] MEDS ORDERED: PROPOFOL IV EMULSION 10 MG/ML 20 ML VIAL IV ONE (06:49)
[2018-10-30] MEDS ORDERED: BACITRACIN INJ 50,000 UNIT VIAL ONE (07:19)
--- NOTE | 2018-10-30 07:23 | History & Physical Bridge Note ---
Date of Service October 30, 2018 History & Physical Bridge Note I have examined the patient, reviewed the History & Physical and in the interval since the performance of the History & Physical I have noted the following changes of clinical significance: no changes noted
[2018-10-30] MEDS ORDERED: ATROPINE SULFATE 0.1 MG/ML 10ML SYR IV PRN ×2 (08:46→09:29)
[2018-10-30] MEDS ORDERED: HYDROmorphone INJ 1 MG/ML SYRINGE IV PRN ×2 (08:46→09:29)
[2018-10-30] MEDS ORDERED: ePHEDrine sulfate 50 MG/ML AMP IV PRN ×2 (08:46→09:29)
--- NOTE | 2018-10-30 09:24 | Anesthesiology Consultation ---
Date of Service October 30, 2018 Assessment & Plan (1) Encounter for pre-operative examination: Chart Review Chart Review: Acceptable Risk for Surgery and Patient NOT seen in Pre Admission Testing Consults Requested none History Surgery Operation Date: 10/30/18 08:55 Proposed Procedures p Right Reverse Total Shoulder Arthroplasty - Sravan Thomas MD Height/Weight Height: 5 ft Weight: 73.936 kg Allergies Allergy/AdvReac Type Severity Reaction Status Date / Time pollen extracts Allergy Intermediate CONGESTION, Verified 10/30/18 07:33 TRIGGER ASTHMA ATTACK terbinafine Allergy Intermediate HIVES Verified 10/30/18 07:33 oxycodone AdvReac Intermediate HEADACHES Verified 10/30/18 07:33 Medications Home Medications Medication Instructions Recorded Confirmed Last Taken acetaminophen 325 mg capsule 650 mg PO Q6H PRN cap 09/24/18 10/30/18 10/30/18 04:30 albuterol sulfate HFA 90 2 puffs INH Q4H PRN gm 09/24/18 10/30/18 Unknown mcg/actuation aerosol inhaler carbidopa 25 mg-levodopa 100 mg 1 tab PO QID 09/24/18 10/30/18 10/30/18 04:30 tablet cetirizine 10 mg capsule 5 mg PO DAILY PRN cap 09/24/18 10/30/18 10/22/18 cholecalciferol (vitamin D3) 1,000 1,000 units PO QPM 09/24/18 10/30/18 10/26/18 18:00 unit capsule duloxetine 60 mg capsule,delayed 60 mg PO QAM 09/24/18 10/30/18 10/30/18 04:30 release levothyroxine 25 mcg capsule 25 mcg PO QAM 09/24/18 10/30/18 10/29/18 08:00 losartan 25 mg tablet 25 mg PO QAM 09/24/18 10/30/18 10/30/18 04:30 meloxicam 7.5 mg tablet 7.5 mg PO QAM 09/24/18 10/30/18 10/26/18 08:00 ropinirole 0.25 mg tablet 0.5 mg PO HS tab 09/24/18 10/30/18 10/29/18 22:00 brinzolamide [Azopt] 1 drp OPHTHALMIC (EYE) HS 10/22/18 10/30/1810/30/19 05:00 fluticasone furoate-vilanterol 1 inh INHALATION QAM 10/22/18 10/30/18 10/30/18 05:00 [Breo Ellipta] fluticasone propionate 2 spray INTRANASAL BID 10/22/18 10/30/18 10/29/18 22:00 gabapentin 100 mg PO TID 10/22/18 10/30/18 10/30/18 04:30 gabapentin 800 mg PO TID 10/22/18 10/30/18 10/30/18 04:30 montelukast [Singulair] 10 mg PO HS 10/22/18 10/30/18 10/29/18 21:00 travoprost [Travatan Z] 1 drp OPB BID 10/22/18 10/30/18 10/30/18 05:00 baclofen 20 mg PO HS 10/23/18 10/30/18 10/29/18 22:00 hydrocodone-acetaminophen [Dunbar] 1 tab PO Q8H PRN #12 tab 10/23/18 10/30/18 Unknown Lamisil AF 1 tab PO BID 10/30/18 10/30/18 10/30/18 05:00 Active Medications Generic Name Dose Route Start Last Admin Trade Name Freq PRN Reason Stop Dose Admin Acetaminophen 1,000 mg 10/30/18 06:00 10/30/18 08:21 Tylenol PO 10/30/18 18:00 Not Given PREOP URI Celecoxib 200 mg 10/30/18 06:00 10/30/18 08:20 Celebrex PO 10/30/18 18:00 200 mg PREOP URI Administration Dexamethasone 8 mg 10/30/18 06:00 10/30/18 08:20 Decadron PO 10/30/18 18:00 8 mg PREOP URI Administration Famotidine 20 mg 10/30/18 06:00 10/30/18 08:20 Pepcid PO 10/30/18 18:00 20 mg PREOP URI Administration Gabapentin 300 mg 10/30/18 06:00 10/30/18 08:21 Neurontin PO 10/30/18 18:00 Not Given PREOP URI Lactated Ringer's 1,000 mls @ 15 mls/hr 10/30/18 06:00 10/30/18 07:45 Lr IV 10/31/18 05:59 15 mls/hr .Q24H URI Administration Metoclopramide HCl 10 mg 10/30/18 06:00 10/30/18 08:20 Reglan PO 10/30/18 18:00 10 mg PREOP URI Administration NPO Date Last Intake of Fluids: 10/29/18 Time Last Intake of Fluids: 23:55 Last Intake of Fluids Comment: sip of water with meds this am 0430 Date Last Intake of Solids: 10/29/18 Time Last Intake of Solids: 21:00 Past Medical History Medical History History of lower leg fracture (Acute) left leg- spiral fracture- repaired by Dr Zhang Neuropathy (Acute) Sleep apnea (Acute) Spinal cord stimulator status (Acute) Fibromyalgia (Acute) Restless leg syndrome (Acute) Arthritis (Chronic) Asthma (Chronic) Depression (Chronic) GERD (gastroesophageal reflux disease) (Chronic) Hypothyroid (Chronic) Cataract (Resolved) Leg fracture, left Past Surgical History Surgical History History of back surgery (Chronic) Social History Smoking Status: Never smoker Do You Dip or Chew Tobacco: No Hx Alcohol Use: No Hx Substance Use: No Physical Exam Vital Signs Last Vital Signs Temp 36.5 C 10/30/18 07:45 Pulse 66 10/30/18 07:45 Resp 20 10/30/18 07:45 BP 158/73 H 10/30/18 07:45 Pulse Ox 96 10/30/18 07:45 Testing Laboratory Results Blood Type A Positive 10/29/18 18:24 Antibody Screen NEGATIVE 10/29/18 18:24
[2018-10-30] MEDS ORDERED: CEFAZOLIN 250 MG/ML 1 GM VIAL ONE (09:30)
[2018-10-30] MEDS ORDERED: CEFAZOLIN 1000MG 1,000 MG/7.5 ML SYR IV ONE (09:39)
[2018-10-30] MEDS ORDERED: METOPROLOL TARTRATE 1 MG/ML VIAL IV ONE (09:46)
[2018-10-30] MEDS ORDERED: ePHEDrine sulfate 50 MG/ML SYR ONE (09:46)
[2018-10-30] MEDS ORDERED: ROCURONIUM BROMIDE 10 MG/ML 5 ML VIAL ONE (10:21)
[2018-10-30] MEDS ORDERED: NEOSTIGMINE METHYLSULFATE 5 MG/5 ML SYR ONE (11:04)
[2018-10-30] MEDS ORDERED: GLYCOPYRROLATE 0.2 MG/ML VIAL ONE (11:04)
--- NOTE | 2018-10-30 11:40 | Post Operative Brief Note ---
Immediate Post Op Note v1 Date of Surgery October 30, 2018 Pre & Post Diagnosis Operation Date: 10/30/18 08:55 Pre-Op Diagnosis: Right Shoulder Fracture Anterior Dislocation Post-Op Diagnosis: Right Shoulder Fracture Anterior Dislocation Procedure Operation Date: 10/30/18 08:55 Actual Procedures p Right Reverse Total Shoulder Arthroplasty(Right) - Sravan Thomas MD Surgeon Sravan Thomas MD Geospatial Information Technologist Red SHARMA Estimated Blood Loss 50 Findings Consistent with Post-Op Diagnosis Specimens Humeral head Drains Elizabeth Catheter and Hemovac Drain (Dual Hemovac) Anesthesia Type General Regional Complications none Disposition Accompanied Patient To Recovery: No Disposition: Recovery Room Overlapping Procedure I was immediately available: during the entire case.
--- NOTE | 2018-10-30 12:31 | XRay Report ---
XR shoulder RT min 2V routine CLINICAL HISTORY: Post shoulder surgery postoperative COMPARISON: 10/22/2018 DISCUSSION: Anatomic alignment post total right shoulder arthroplasty. Good contact between prostheti c and underlying bone. Expected soft tissue postoperative change. IMPRESSION: Anatomic alignment post total right shoulder arthroplasty. The above report was generated using voice recognition software. It may contain grammatical, syntax or spelling errors. Electronically signed by: Edson Dawson M.D. 10/30/2018 12:29 PM
--- NOTE | 2018-10-30 12:41 | Anesthesiology Progress Note ---
Date of Service October 30, 2018 Anesthesia Post Procedure Vital Signs Vital Signs: Temp Pulse Pulse Resp BP Pulse Ox 10/30/18 12:35 87 15 148/71 H 93 10/30/18 12:25 97 H 16 161/98 H 92 10/30/18 12:15 99 H 19 136/96 92 10/30/18 12:05 93 H 15 171/86 H 90 10/30/18 11:55 74 15 128/98 94 10/30/18 11:45 36.6 C 75 20 162/94 H 93 10/30/18 07:45 36.5 C 66 20 158/73 H 96 Pain Intensity Right Shoulder: Pain Intensity: 8 Back: Pain Intensity: 5 Transfer of Care Handoff Completed per policy Notes Mental Status: alert / awake / arousable Patient Amnestic to Procedure: Yes Nausea / Vomiting: adequately controlled Pain: adequately controlled Airway Patency, RR, SpO2: stable & adequate BP & HR: stable & adequate Hydration State: stable & adequate Anesthetic Complications: no major complications apparent and Pt Satisfied with anesthetic care
[2018-10-30] MEDS ORDERED: BISACODYL 10 MG SUPP PR PRN (13:16)
[2018-10-30] MEDS ORDERED: MAGNESIUM HYDROXIDE SUSP 30 ML UDC PO PRN (13:16)
[2018-10-30] MEDS ORDERED: CETIRIZINE HCL 10 MG TABLET PO PRN (13:16)
[2018-10-30] MEDS ORDERED: SODIUM CHLORIDE 0.9% 1000ML 1,000 ML IV SCH (13:16)
[2018-10-30] MEDS ORDERED: NALOXONE HCL 0.4 MG/1 ML VIAL/CARP IV PRN (13:16)
[2018-10-30] MEDS ORDERED: ALBUTEROL HFA 8 GM INHALER INH PRN (13:16)
[2018-10-30] MEDS ORDERED: ONDANSETRON INJ 2 MG/ML 2 ML VIAL IV PRN (13:16)
--- NOTE | 2018-10-30 13:50 | Operative Report ---
Post Operative Report Pre & Post Diagnosis Operation Date: 10/30/18 08:55 Pre-Op Diagnosis: Right Shoulder Anterior Dislocation Hill-Sachs and bony Bankart lesions possible rotator cuff tear Post-Op Diagnosis: Right shoulder anterior dislocation Hill-Sachs bony Bankart lesions with chronic rotator cuff tear and ruptured long head biceps tendon. Procedure Operation Date: 10/30/18 08:55 Actual Procedures p Right Reverse Total Shoulder Arthroplasty(Right) - Sravan Thomas MD Surgeon Sravan Thomas MD Multiple Sclerosis Nurse Red SHARMA Estimated Blood Loss 50 Findings Consistent with Post-Op Diagnosis Specimens Humeral head Drains 2 Hemovac Anesthesia Type General Regional Complications none Disposition Accompanied Patient To Recovery: No Disposition: Recovery Room Indications 73-year-old female who dislocated her right shoulder. She had a closed reduction and it promptly redislocated. She had another close reduction and it redislocated. Patient presented with a chronic anteriorly dislocated shoulder. CT scan demonstrates an anterior dislocated shoulder with Hill-Sachs and bony Bankart lesions and some chronic cystic changes in the inferior glenoid likely arthritic in nature. She has a type III acromion with a large subacromial spur. Description of Procedure The patient was taken to the operating room and anesthetized under regional block and general anesthetic. The patient was positioned on the operating table in a 30 beachchair position with a towel roll under the medial border of the right scapula. Gentle manipulation was performed with patient under muscle relaxation to reduce the chronically dislocated anterior shoulder. Shoulder was reduced and with any abduction external rotation the shoulder would probably re- dislocate and it was extremely unstable. Caution was taken to maintain the arm in the located position after re-reduction during the prepping.. The arm was draped free to be able to manipulate the shoulder as needed. The right upper extremity was prepped and draped in usual sterile fashion. An anterior deltopectoral approach was performed. A longitudinal incision was made in the deltopectoral interval. The skin was incised sharply. Subcutaneous flaps were elevated off the fascia. The cephalic vein was dissected out and retracted lateral with the deltoid. The clavipectoral fascia was divided at the lateral margin of the conjoined tendon and extended up to the CA ligament. The following findings were noted: Patient had a chronic rotator cuff tear involving the anterior infraspinatus and posterior supraspinatus with some of the anterior supraspinatus still intact with the subscapularis tendon which was still intact. The upper centimeter of the pectoralis was released for inferior exposure. The biceps tendon findings demonstrated absent biceps tendon with distal retraction consistent with proximal rupture. The remnant of the supraspinatus was released off the greater tuberosity and the rotator interval opened up down to the glenoid. The subscapularis tendon was taken down off the lesser tuberosity using a subperiosteal dissection. A #1 Vicryl traction suture was placed into the free end of the subscapularis tendon and capsule. The subscapular muscle fibers were split longitudinally at the level of the circumflex vessels. The circumflex vessels were identified and tied off with silk ties and divided laterally. A Kitner elevator was used to free up the inferior fibers of the subscapularis off of the capsule. The axillary nerve was identified with a tug test and protected with a blunt Britt retractor between the nerve and the capsule. The subscapularis tendon was then taken down off of the lesser tuberosity subperiosteally and subperiosteal dissection was performed along the neck of the humerus as the arm is gradually actually rotated exposing the humeral head. Retractors were readjusted and the inferior osteophytes were all resected using an artist chisel. A Lanier elevator was used to assist in releasing the capsule of the neck of the humerus. A Fukuda retractor was placed into the joint retracting the humeral head posterior. Glenoid findings demonstrated bony Bankart lesion anteriorly with approximately a 14 mm fragment of glenoid bone with capsule retracted anteriorly with a torn labral fragment. Below the Bankart lesion there were cysts in the glenoid bone itself. This communicated with the fracture. There was articular cartilage covering the remainder of the glenoid. No biceps tendon was identified within the joint. The labrum was resected. an anterior-inferior and posterior inferior capsular release were performed with electrocautery and a Lanier elevator on bone with the axillary nerve protected inferiorly by the retractor. Attention was then taken to the humeral preparation. The cutting guide was placed into the humeral head. It was positioned at 20 of retroversion. Oscillating saw was used to resect the humeral head giving the cut above the level of the posterior rotator cuff insertion site. The humerus was then prepared for the stem. I used the ascend flex stem from [employer]. The sizing broaches were used followed by trial broaches up to a size 2 which had the appropriate fit and fill. The appropriate sized cut protector was placed. The humerus was then retracted posterior to the glenoid. The glenoid was sized for a 36. The guide for the baseplate was positioned in a 10 inferior tilt and the central drill hole was made. I position his guide just at the edge of the Bankart lesion so that there was minimal overhang of the implant anterior inferiorly where the fracture fragment occurred. The reamer for the 25 perform baseplate was used. The reamer for the central boss was used. The depth gauge was used to measure for the central screw. The tap was used for the central screw. The 25 standard perform baseplate was screwed into position. The central screw was 6.5 x 35 mm. The base plate was transfixed with superior and inferior locking screws and anterior and posterior compression screws with stable fixation. The fan reamer was used for the 36 millimeter glenoid sphere. After irrigation the 36+2 eccentric glenoid sphere was impacted onto the baseplate and the screw was tightened. Attention was taken back to the humerus. The cut protector was removed and the +0 high offset humeral tray trial was assembled to the trial stem rotated appropriately to get bony coverage and then screwed in position. A trial reduction was performed. A +6 trial insert demonstrated good stability and no shuck. The trials were removed. 3 drill holes are made into the harder bone in the bicipital groove area and 3 #5 FiberWire sutures were placed transosseously. The canal was irrigated with antibiotic solution with bacitracin. The final component was assembled. The final component was ascend flex to be long stem plus or high offset tray and 36 mm +6 polyethylene. This was then impacted into the humerus with a tight press-fit. It was reduced to the glenoid sphere. Stability was verified. Subscapularis was repaired with the #5 FiberWire sutures using Mata-Callum suture technique. Lateral row soft tissue repair was performed with #2 FiberWire [id number] sutures. The pectoralis was repaired with #2 FiberWire [id number] sutures . The arm was taken through a range of motion which demonstrated 160 degrees of forward elevation and abduction and internal extra rotation 80 degrees. The implant was stable through the range of motion tested. The wound was copiously irrigated. 2 Hemovac drains were placed. The deltopectoral interval was closed with [id number] #1 Vicryl sutures. The subcutaneous tissues were closed with 2- 0 Vicryl sutures. The skin was closed with mikhail. Sterile dressings were applied and a shoulder immobilizer.Red SHARMA My physician assistant customer service manager assisted in the procedure to the entire procedure including patient positioning arm positioning prepping and draping soft tissue retraction instrument management suture management and performed the subcutaneous and skin closure and will participate in the postoperative care of the patient. I attest to the content of the Intraoperative Record and any orders documented therein. Any exceptions are noted below.
[2018-10-30] MEDS ORDERED: GABAPENTIN 100 MG CAP PO SCH (14:00)
--- NOTE | 2018-10-30 14:39 | Consultation ---
Date of Consultation October 30, 2018 Assessment & Plan (1) S/P shoulder replacement: This is a 73yo F with a PMH of HTN, HLD, asthma, hypothyroidism, mood disorder and recurrent shoulder dislocation who is POD#0 s/p R reverse TSA by Dr. Thomas. -POD#0 s/p R reverse TSA by Dr. Thomas -Pt is doing well post-operatively -Per ortho for pain control, wound care, anticoagulation and activities -Monitor H&H (baseline hgb of 13.1 on 10/29/18) -Continue incentive spirometry, PT/OT when appropriate (2) Neuropathy: (3) Restless leg syndrome: (4) Fibromyalgia: Follows with Dr. Swartz (s/p spinal surgery in 2016) and Dr. Avalos of neuro for pain management -On nerve stimulator -Continue home dose Neurontin, Sinemet, Requip, baclofen -Monitor cognitive and respiratory status closely while also receiving narcotics (5) Traumatic open wound of right lower leg with delayed healing: H/o recent Fusarium infection of RLE, following with wound care and ID -Continue Lamisol BID -Wound care consult placed (6) HTN (hypertension): Normotensive -Continue Losartan (7) Hypothyroid: (8) Asthma: Stable. Continue Breo Ellipta inh, Albuterol inh PRN (9) Depression: Continue SNRI PCP: Violette Dispo: Per primary service Patient seen in collaboration with Dr. Sandy. Please see addendum. Supervising Physician Co-Signing Physician Notes I have seen and examined the patient and have discussed the case with the provider above. I agree with the assessment and plan as stated. DO Du History of Present Illness Reason for Consultation: post op medical mgmt Attending Physician: Sravan Thomas MD History of Present Illness This is a 73yo F with a PMH of HTN, HLD, asthma, hypothyroidism, mood disorder and recurrent shoulder dislocation who is POD#0 s/p R reverse TSA by Dr. Thomas. Patient is feeling well post-operatively. Denies surgical site pain or numbness/paresthesias distal to joint. H/o chronic shoulder dislocations in the past. Also with R leg wound with fungal infection, following with wound care and ID. Currently receiving Lamisil BID, per ID. Also has history of sciatica and RLS which requires multiple medications and nerve stimulator--followed by Dr. Swartz and [facility] neuro. Denies any fever, chills, lightheadedness, headache, chest pain, SOB, nausea, vomiting, abdominal painm dysuria, diarhea or constipation. Elizabeth catheter in place draining yellow urine. Last BM was yesterday. PCP is Dr. Oakes. Allergies Allergy/AdvReac Type Severity Reaction Status Date / Time pollen extracts Allergy Intermediate CONGESTION, Verified 10/30/18 07:33 TRIGGER ASTHMA ATTACK terbinafine Allergy Intermediate HIVES Verified 10/30/18 07:33 oxycodone AdvReac Intermediate HEADACHES Verified 10/30/18 07:33 Home Medications Home Medications Medication Instructions Recorded Confirmed Type acetaminophen 325 mg capsule 650 mg PO Q6H PRN cap 09/24/18 10/30/18 History albuterol sulfate HFA 90 2 puffs INH Q4H PRN gm 09/24/18 10/30/18 History mcg/actuation aerosol inhaler carbidopa 25 mg-levodopa 100 mg 1 tab PO QID 09/24/18 10/30/18 History tablet cetirizine 10 mg capsule 5 mg PO DAILY PRN cap 09/24/18 10/30/18 History cholecalciferol (vitamin D3) 1,000 1,000 units PO QPM 09/24/18 10/30/18 History unit capsule duloxetine 60 mg capsule,delayed 60 mg PO QAM 09/24/18 10/30/18 History release levothyroxine 25 mcg capsule 25 mcg PO QAM 09/24/18 10/30/18 History losartan 25 mg tablet 25 mg PO QAM 09/24/18 10/30/18 History meloxicam 7.5 mg tablet 7.5 mg PO QAM PRN 09/24/18 10/30/18 History ropinirole 0.25 mg tablet 0.5 mg PO HS tab 09/24/18 10/30/18 History brinzolamide [Azopt] 1 drp OPHTHALMIC (EYE) HS 10/22/18 10/30/18 History fluticasone furoate-vilanterol 1 inh INHALATION QAM 10/22/18 10/30/18 History [Breo Ellipta] fluticasone propionate 2 spray INTRANASAL BID 10/22/18 10/30/18 History gabapentin 100 mg PO TID 10/22/18 10/30/18 History gabapentin 800 mg PO TID 10/22/18 10/30/18 History montelukast [Singulair] 10 mg PO HS 10/22/18 10/30/18 History travoprost [Travatan Z] 1 drp OPB BID 10/22/18 10/30/18 History baclofen 20 mg PO HS 10/23/18 10/30/18 History hydrocodone-acetaminophen [Foster] 1 tab PO Q8H PRN #12 tab 10/23/18 10/30/18 Rx Lamisil AF 1 tab PO BID 10/30/18 10/30/18 History Patient History Medical History Restless leg syndrome (Chronic) Fibromyalgia (Chronic) Asthma (Chronic) Arthritis (Chronic) Hypothyroid (Chronic) Depression (Chronic) GERD (gastroesophageal reflux disease) (Chronic) Neuropathy (Chronic) Sleep apnea (Chronic) intolerant to CPAP Spinal cord stimulator status (Chronic) Cataract (Resolved) Surgical History History of back surgery (Chronic) Social History Preferred Language: Barbadian Beliefs That Will Affect Care: None Current Living Situation: Spouse current occupational status: retired 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 Physical Exam Physical Exam: General Appearance: WD/WN, no apparent distress, resting comfortably Head: normocephalic, atraumatic Eyes: normal inspection, PERRL, EOMI ENT: hearing grossly normal, pharynx normal (dry mucous membranes) Neck: supple, no JVD, no adenopathy Respiratory/Chest: lungs clear to auscultation. No wheezes, rales or rhonci. No respiratory distress or accessory muscle use Cardiovascular: regular rate, rhythm, no murmur, normal peripheral pulses Abdomen/GI: normal bowel sounds, soft, non-tender to palpation : Elizabeth in place draining yellow urine Extremities/Musculoskelatal: R shoulder with surgical dressing, clean/dry/intact. Drain visualized. No calf tenderness, normal capillary refill, no pedal edema. + SCDs Neurologic/Psych: alert, normal mood/affect, oriented x 3 Skin: normal color, warm/dry Results & Data Vital Signs (Past 12 Hours) Vital Signs Temp Pulse Pulse Resp BP Pulse Ox 10/30/18 14:33 15 134/75 97 10/30/18 13:50 106 H 19 128/62 91 10/30/18 12:55 85 24 134/70 92 10/30/18 12:45 36.6 C 80 20 152/74 H 92 10/30/18 12:35 87 15 148/71 H 93 10/30/18 12:25 97 H 16 161/98 H 92 10/30/18 12:15 99 H 19 136/96 92 10/30/18 12:05 93 H 15 171/86 H 90 10/30/18 11:55 74 15 128/98 94 10/30/18 11:45 36.6 C 75 20 162/94 H 93 10/30/18 07:45 36.5 C 66 20 158/73 H 96 Laboratory Results Pertinent pre-op labs (10/29/18): Hgb: 13.3 Cr: 0.69 GFR: 85.8
[2018-10-30] MEDS: GABAPENTIN 100 MG CAP PO SCH ×2 (14:48→20:38)
[2018-10-30] MEDS: CARBIDOPA/LEVODOPA 25/100MG TAB PO SCH ×3 (14:48→20:38)
[2018-10-30] MEDS: GABAPENTIN 800 MG TAB PO SCH ×2 (14:48→20:38)
[2018-10-30] MEDS: BREO ~ ORDER AWAITING ACTION SCH (15:51)
[2018-10-30] MEDS: CEFAZOLIN 1000MG 1,000 MG/7.5 ML SYR IV SCH (17:56)
[2018-10-30] MEDS: SENNA 8.6 MG TAB PO SCH (20:38)
[2018-10-30] MEDS: FLUTICASONE PROPIONATE NA SPR 16 GM BTL SCH (20:38)
[2018-10-30] MEDS: MONTELUKAST SODIUM 10 MG TABLET PO SCH (20:38)
[2018-10-30] MEDS: TRAVOPROST Z 0.004% OPH SOLN 2.5 ML BTL OPB SCH (20:38)
[2018-10-30] MEDS: DOCUSATE SODIUM 100 MG CAP PO SCH (20:38)
[2018-10-30] MEDS: ROPINIROLE HCL 0.25 MG TABLET PO SCH (20:38)
[2018-10-30] MEDS: BACLOFEN 10 MG TAB PO SCH (20:38)
[2018-10-30] MEDS: TERBINAFINE HCL 250 MG TAB PO SCH (20:38)
[2018-10-30] MEDS: BRINZOLAMIDE (AZOPT) OPS 10 ML BTL OP SCH (20:39)
[2018-10-31] MEDS: BREO ~ ORDER AWAITING ACTION SCH ×3 (00:54→16:00)
[2018-10-31] MEDS: CEFAZOLIN 1000MG 1,000 MG/7.5 ML SYR IV SCH (00:59)
[2018-10-31] MEDS: HYDROmorphone INJ 0.5 MG/0.5 ML SYR IV PRN ×3 (00:59→15:12)
[2018-10-31] MEDS: HYDROCODONE/ACETAMOPHEN 5/325MG TAB PO PRN ×3 (01:57→19:50)
[2018-10-31] MEDS: LEVOTHYROXINE SODIUM 25 MCG TABLET PO SCH (05:35)
[2018-10-31 06:39] LABS: Hematocrit (blood only) 36.5 % (37-47); Hemoglobin 11.9 g/dL (12.0-16.0); Mean Corpuscular Hgb Conc 32.6 g/dL (32-36); Mean Corpuscular Volume 92.9 fL (80-100); Mean Platelet Volume 9.1 fL (7.4-10.4); Platelet Count 407 K/uL (130-400); RDW Coefficient of Variation 14.2 % (11.5-14.5); RDW Standard Deviation 48.5 fL (36.4-46.3); Red Blood Count 3.93 M/uL (4.2-5.4); White Blood Count 16.24 K/uL (4.8-10.8)
[2018-10-31 07:09] LABS: Basophils # (auto) 0.01 K/uL (0-0.2); Basophils % (auto) 0.1 %; Immature Granulocytes # (auto) 0.05 K/uL (0.00-0.02); Immature Granulocytes % (auto) 0.3 %; Lymphocytes # (auto) 1.41 K/uL (1.2-3.4); Lymphocytes % (auto) 8.7 %; Monocytes # (auto) 1.11 K/uL (0.11-0.59); Monocytes % (auto) 6.8 %; Neutrophils # (auto) 13.66 K/uL (1.4-6.5); Neutrophils % (auto) 84.1 %
[2018-10-31 07:17] LABS: BUN Creatinine Ratio 25.8 (10-20); Calcium 9.1 mg/dl (8.5-10.1); Creatinine Clr Calc Pharmacy 66.1 ml/min; Est GFR (African American) 100.4; Est GFR (Non-African American) 86.6
--- NOTE | 2018-10-31 08:30 | Orthopedic Progress Note ---
Date of Service October 31, 2018 Assessment & Plan (1) S/P shoulder replacement: POD #1, Right Reversed TSA Limited PT/ OT DVT proph- ASA D/C planning- Home w HEP only, No formal PT needed. As per medicine- monitor mental status, respiratory status stable. Subjective POD #1, Right reversed TSA Denies SOB, CP, N/V Pain is controlled. BP 177/71. Physical Exam Physical Exam: Right shoulder dressings c/d/i, no drainage, drain in tact. Fingers mobile, sling in tact. Patient awake and responds appropriately, but groggy barely keeping eyes open. Results & Data Vital Signs (Past 12 Hours) Vital Signs Temp Pulse Resp BP Pulse Ox 10/31/18 07:22 60 14 171/77 H 93 10/31/18 03:48 36.9 C 74 14 154/72 H 92 10/30/18 23:28 36.7 C 91 H 14 151/80 H 92
[2018-10-31] MEDS: GABAPENTIN 800 MG TAB PO SCH ×3 (08:55→20:57)
[2018-10-31] MEDS: GABAPENTIN 100 MG CAP PO SCH ×3 (08:55→20:57)
[2018-10-31] MEDS: DULOXETINE HCL 60 MG CAP PO SCH (08:55)
[2018-10-31] MEDS: ASPIRIN 81 MG ECTAB PO SCH (08:55)
[2018-10-31] MEDS: TERBINAFINE HCL 250 MG TAB PO SCH ×2 (08:55→20:57)
[2018-10-31] MEDS: MULTIVITAMIN TAB PO SCH (08:55)
[2018-10-31] MEDS: CARBIDOPA/LEVODOPA 25/100MG TAB PO SCH ×4 (08:55→20:56)
[2018-10-31] MEDS: TRAVOPROST Z 0.004% OPH SOLN 2.5 ML BTL OPB SCH ×2 (08:56→20:56)
[2018-10-31] MEDS: DOCUSATE SODIUM 100 MG CAP PO SCH ×2 (08:56→20:56)
[2018-10-31] MEDS: FLUTICASONE PROPIONATE NA SPR 16 GM BTL SCH ×2 (08:56→20:58)
[2018-10-31] MEDS: LOSARTAN POTASSIUM 25 MG TAB PO SCH (08:56)
--- NOTE | 2018-10-31 10:46 | Hospitalist Progress Note ---
Date of Service October 31, 2018 Assessment & Plan (1) S/P shoulder replacement: This is a 73yo F with a PMH of HTN, HLD, asthma, hypothyroidism, mood disorder and recurrent shoulder dislocation who is POD#1 s/p R reverse TSA by Dr. Thomas. -POD#1 s/p R reverse TSA by Dr. Thomas -Pt is doing well post-operatively except post op pain -Per ortho for pain control, wound care, anticoagulation and activities -Monitor H&H (baseline hgb of 13.3/39.5 on 10/29/18) -Continue incentive spirometry, PT/OT when appropriate (2) Acute blood loss anemia: -H/H 11.9 and 36.5 -Preop 13.3/39.5 -Monitor CBC (3) Leukocytosis: -WBC 16.24k -Afebrile and asymptomatic -Likely in setting of postop along with receiving Decadron preop -Repeat CBC in a.m. (4) Traumatic open wound of right lower leg with delayed healing: H/o recent Fusarium infection of RLE, following with wound care and ID -Continue Lamisol BID -Wound care consult placed (5) HTN (hypertension): Blood pressure elevated 168/73 upon my examination, likely in setting of post op pain Continue Losartan if remains elevated titrate up (6) Hypothyroid: Continue levothyroxine (7) Asthma: Stable. Continue Breo Ellipta inh, Albuterol inh PRN (8) Glaucoma: Continue eyedrops Slight right conjunctival irritation today but without symptoms (9) Fibromyalgia: Follows with Dr. Swartz (s/p spinal surgery in 2015) and Dr. Avalos of neuro for pain management -On nerve stimulator -Continue home dose Neurontin, Sinemet, Requip, baclofen -Monitor cognitive and respiratory status closely while also receiving narcotics (10) Restless leg syndrome: -Follows with Dr. Swartz (s/p spinal surgery in 2015) and Dr. Avalos of neuro for pain management -On nerve stimulator -Continue home dose Neurontin, Requip (11) Depression: Continue SNRI PCP: Violette Dispo: Per primary service Patient seen in collaboration with Dr. Sanabria. Please see addendum. Thank you for this consultation. We will follow the patient with you during their hospital stay. You can reach a member of the [facility] Hospitalist Team 24/7 via pager @ [phone]. Supervising Physician Co-Signing Physician Notes Pt was seen and examined. Agreed with Mckayla CALDWELL exam, assessment and plan. S/P day #[address] Thomas. No post op complication. Continue pain control. Incentive spirometry. Fall precaution. Continue monitor. MD Daniele Subjective Patient was seen and examined at bedside in room 313. Follow-up Right reverse total shoulder arthroplasty POD #[address] Thomas. Currently complains of right shoulder pain. "The narcotics they are giving me are not helping." "I have fibromyalgia and I think this is playing a component as well. I'm not doing very good today." States she hasn't sleep in days. She denies any fever,chills, sweats, dizziness, MARS, change in vision or eye pain, chest pain, sob, cough, n/v/d. She is passing gas. Cath was removed this a.m. and is urinating without dysuria or increased freq/urgency. Complains of wound on her right leg. Review of Systems Review of Systems: As noted per HPI, 10 systems reviewed and negative unless noted above. Physical Exam Physical Exam: Gen: WD/WN, Elderly F, sitting up in bedside chair, NAD, A&O x3, BP 168/73 HEENT: Normocephalic, atraumatic, conjunctivae moist with mild R conjunctival injection, sclerae anicteric, mucous membranes moist. Lung: Clear to Auscultation bilaterally, no wheezes/rales/rhonchi Heart: Regular rate, regular rhythm, no murmurs, rubs, or gallops Abdomen: Soft, NT, ND +BS x 4 Extremities: No edema, RLE with Compression dressing in place, R shoulder with dressing CDI, hemovac intact Skin: Warm, no rash, negative turgor. Results & Data Vital Signs (Past 12 Hours) Vital Signs Temp Pulse Resp BP Pulse Ox 10/31/18 07:22 60 14 171/77 H 93 10/31/18 03:48 36.9 C 74 14 154/72 H 92 10/30/18 23:28 36.7 C 91 H 14 151/80 H 92 Laboratory Results Short CBC 05/09/19 Range/Units 06:06 WBC 16.24 H (4.8-10.8) K/uL Hgb 11.9 L (12.0-16.0) g/dL Hct 36.5 L (37-47) % Plt Count 407 H (130-400) K/uL BMP 10/31/18 06:06 Sodium 137 Potassium 4.0 Chloride 106 Carbon Dioxide 27 BUN 17 Creatinine 0.67 Glucose 145 H Calcium 9.1 Medications Administered Hydrocodone Bitart/Acetaminophen ([place] 5/325) 1 - 2 tab PO Q4H PRN PRN Reason: Pain Stop: 11/13/18 13:15 Last Admin: 10/31/18 08:57 Dose: 2 tab Documented by: [id number] Admin: 10/31/18 01:57 Dose: 2 tab Documented by: [id number] Aspirin (Ecotrin Ectab) 81 mg PO [facility] Stop: 11/30/18 08:59 Last Admin: 10/31/18 08:55 Dose: 81 mg Documented by: [id number] Baclofen (Lioresal) 20 mg PO [facility] Stop: 11/29/18 20:59 Last Admin: 10/30/18 20:38 Dose: 20 mg Documented by: [id number] Brinzolamide (Azopt) 1 drops OP [facility] Stop: 11/29/18 20:59 Last Admin: 10/30/18 20:39 Dose: 1 drops Documented by: [id number] Carbidopa/Levodopa (Sinemet 25/100 Mg) 1 tab PO QID [facility] Stop: 11/29/18 13:15 Last Admin: 10/31/18 08:55 Dose: 1 tab Documented by: [id number] Admin: 10/30/18 20:38 Dose: 1 tab Documented by: [id number] Admin: 10/30/18 17:56 Dose: 1 tab Documented by: [id number] Admin: 10/30/18 14:48 Dose: 1 tab Documented by: [id number] Docusate Sodium (Colace) 100 mg PO BID [facility] Stop: 11/29/18 20:59 Last Admin: 10/31/18 08:56 Dose: 100 mg Documented by: [id number] Admin: 10/30/18 20:38 Dose: 100 mg Documented by: [id number] Duloxetine HCl (Cymbalta) 60 mg PO [facility] Stop: 11/30/18 08:59 Last Admin: 10/31/18 08:55 Dose: 60 mg Documented by: [id number] Fluticasone Propionate (Flonase) 2 sprays NA BID [facility] Stop: 11/29/18 20:59 Last Admin: 10/31/18 08:56 Dose: 2 sprays Documented by: [id number] Admin: 10/30/18 20:38 Dose: 2 sprays Documented by: [id number] Gabapentin (Neurontin) 800 mg PO TID [facility] Stop: 11/29/18 13:59 Last Admin: 10/31/18 08:55 Dose: 800 mg Documented by: [id number] Admin: 10/30/18 20:38 Dose: 800 mg Documented by: [id number] Admin: 10/30/18 14:48 Dose: 800 mg Documented by: [id number] Gabapentin (Neurontin) 100 mg PO TID [facility] Stop: 11/29/18 13:59 Last Admin: 10/31/18 08:55 Dose: 100 mg Documented by: [id number] Admin: 10/30/18 20:38 Dose: 100 mg Documented by: [id number] Admin: 10/30/18 14:48 Dose: 100 mg Documented by: [id number] Hydromorphone HCl (Dilaudid) 0.5 mg IV Q4H PRN PRN Reason: Pain Stop: 11/13/18 13:15 Last Admin: 10/31/18 05:00 Dose: 0.5 mg Documented by: [id number] Admin: 10/31/18 00:59 Dose: 0.5 mg Documented by: [id number] Levothyroxine Sodium (Synthroid) 25 mcg PO DAILYBB [facility] Stop: 11/30/18 06:29 Last Admin: 10/31/18 05:35 Dose: 25 mcg Documented by: [id number] Losartan Potassium (Cozaar) 25 mg PO QAM [facility] Stop: 11/30/18 08:59 Last Admin: 10/31/18 08:56 Dose: 25 mg Documented by: [id number] Miscellaneous (Order Awaiting Action) 1 ea N/A QS [facility] Stop: 11/29/18 15:59 Last Admin: 10/31/18 08:48 Dose: Not Given Documented by: [id number] Admin: 10/31/18 00:54 Dose: Not Given Documented by: [id number] Admin: 10/30/18 15:51 Dose: Not Given Documented by: [id number] Montelukast Sodium (Singulair) 10 mg PO [facility] Stop: 11/29/18 20:59 Last Admin: 10/30/18 20:38 Dose: 10 mg Documented by: [id number] Multivitamins ([facility]ivitamin Tab) [facility] [place] Stop: 11/30/18 08:59 Last Admin: 10/31/18 08:55 Dose: 1 tab Documented by: [id number] Ropinirole HCl (Requip) 0.5 mg PO [facility] Stop: 11/29/18 20:59 Last Admin: 10/30/18 20:38 Dose: 0.5 mg Documented by: [id number] Sennosides (Senokot) 17.2 mg PO [facility] Stop: 11/29/18 20:59 Last Admin: 10/30/18 20:38 Dose: 17.2 mg Documented by: [id number] Terbinafine HCl (Lamisil) 250 mg PO BID [facility] Stop: 11/29/18 20:59 Last Admin: 10/31/18 08:55 Dose: 250 mg Documented by: [id number] Admin: 10/30/18 20:38 Dose: 250 mg Documented by: [id number] Discontinued Medications Acetaminophen (Tylenol) 1,000 mg PO PREOP [facility] Stop: 10/30/18 18:00 Last Admin: 10/30/18 08:21 Dose: Not Given Documented by: [id number] Bacitracin (Bacitracin) Confirm Administered Dose 50,000 units .ROUTE .STK-MED [facility] Stop: 10/30/18 07:20 Last Admin: 10/30/18 11:23 Dose: 50,000 units Documented by: [id number] Celecoxib (Celebrex) 200 mg PO PREOP [facility] Stop: 10/30/18 18:00 Last Admin: 10/30/18 08:20 Dose: 200 mg Documented by: [id number] Dexamethasone (Decadron) 8 mg PO PREOP [facility] Stop: 10/30/18 18:00 Last Admin: 10/30/18 08:20 Dose: 8 mg Documented by: [id number] Famotidine (Pepcid) 20 mg PO PREOP [facility] Stop: 10/30/18 18:00 Last Admin: 10/30/18 08:20 Dose: 20 mg Documented by: [id number] Gabapentin (Neurontin) 300 mg PO PREOP [facility] Stop: 10/30/18 18:00 Last Admin: 10/30/18 08:21 Dose: Not Given Documented by: [id number] Cefazolin Sodium (Ancef 1000mg) 1,000 mg in 7.5 mls @ 2.5 mls/min IV PREOP [facility]; Protocol Stop: 10/30/18 18:00 Last Admin: 10/30/18 13:18 Dose: Not Given Documented by: [id number] Lactated Ringer's (Lr) 1,000 mls @ 15 mls/hr IV .Q24H [facility] Stop: 10/31/18 05:59 Last Infusion: 10/30/18 08:59 Dose: 0 mls/hr Documented by: [id number] Admin: 10/30/18 07:45 Dose: 15 mls/hr Documented by: [id number] Cefazolin Sodium (Ancef 1000mg) 1,000 mg in 7.5 mls @ 2.5 mls/min IV ONCE ONE Stop: 10/30/18 09:41 Last Admin: 10/30/18 08:59 Dose: 2.5 mls/min Documented by: [id number] Cefazolin Sodium (Ancef 1000mg) 1,000 mg in 7.5 mls @ 2.5 mls/min IV Q8H URI; Protocol Stop: 10/31/18 01:02 Last Admin: 10/31/18 00:59 Dose: 2.5 mls/min Documented by: [id number] Admin: 10/30/18 17:56 Dose: 2.5 mls/min Documented by: [id number] Sodium Chloride (Nss 1000ml) 1,000 mls @ 100 mls/hr IV .Q10H [facility] Stop: 10/31/18 06:00 Last Infusion: 10/30/18 22:50 Dose: 0 mls/hr Documented by: [id number] Infusion: 10/30/18 22:01 Dose: 100 mls/hr Documented by: [id number] Admin: 10/30/18 13:05 Dose: 100 mls/hr Documented by: [id number] Metoclopramide HCl (Reglan) 10 mg PO PREOP [facility] Stop: 10/30/18 18:00 Last Admin: 10/30/18 08:20 Dose: 10 mg Documented by: [id number]
[2018-10-31] MEDS: BACLOFEN 10 MG TAB PO SCH (20:56)
[2018-10-31] MEDS: SENNA 8.6 MG TAB PO SCH (20:58)
[2018-10-31] MEDS: MONTELUKAST SODIUM 10 MG TABLET PO SCH (20:58)
[2018-10-31] MEDS: BRINZOLAMIDE (AZOPT) OPS 10 ML BTL OP SCH (20:58)
[2018-10-31] MEDS: ROPINIROLE HCL 0.25 MG TABLET PO SCH (20:58)
[2018-11-01] MEDS: HYDROCODONE/ACETAMOPHEN 5/325MG TAB PO PRN ×4 (00:03→18:41)
[2018-11-01] MEDS: BREO ~ ORDER AWAITING ACTION SCH ×3 (01:38→15:44)
[2018-11-01] MEDS: LEVOTHYROXINE SODIUM 25 MCG TABLET PO SCH (06:10)
[2018-11-01 06:46] LABS: Basophils # (auto) 0.04 K/uL (0-0.2); Basophils % (auto) 0.3 %; Eosinophils # (auto) 0.22 K/uL (0-0.5); Eosinophils % (auto) 1.6 %; Hematocrit (blood only) 38.1 % (37-47); Hemoglobin 12.3 g/dL (12.0-16.0); Immature Granulocytes # (auto) 0.04 K/uL (0.00-0.02); Immature Granulocytes % (auto) 0.3 %; Lymphocytes # (auto) 2.61 K/uL (1.2-3.4); Lymphocytes % (auto) 18.7 %; Mean Corpuscular Hgb Conc 32.3 g/dL (32-36); Mean Corpuscular Volume 94.1 fL (80-100); Mean Platelet Volume 8.9 fL (7.4-10.4); Monocytes # (auto) 1.27 K/uL (0.11-0.59); Monocytes % (auto) 9.1 %; Neutrophils # (auto) 9.76 K/uL (1.4-6.5); Platelet Count 401 K/uL (130-400); RDW Coefficient of Variation 14.5 % (11.5-14.5); RDW Standard Deviation 49.7 fL (36.4-46.3); Red Blood Count 4.05 M/uL (4.2-5.4); White Blood Count 13.94 K/uL (4.8-10.8)
[2018-11-01 07:20] LABS: BUN Creatinine Ratio 44.2 (10-20); Calcium 8.8 mg/dl (8.5-10.1); Creatinine Clr Calc Pharmacy 69.2 ml/min; Est GFR (African American) 101.9; Est GFR (Non-African American) 87.9; Potassium 3.9 mmol/L (3.5-5.1)
[2018-11-01] MEDS: DOCUSATE SODIUM 100 MG CAP PO SCH ×2 (08:59→20:07)
[2018-11-01] MEDS: CARBIDOPA/LEVODOPA 25/100MG TAB PO SCH ×4 (09:00→20:07)
[2018-11-01] MEDS: GABAPENTIN 800 MG TAB PO SCH ×3 (09:00→20:07)
[2018-11-01] MEDS: DULOXETINE HCL 60 MG CAP PO SCH (09:00)
[2018-11-01] MEDS: LOSARTAN POTASSIUM 25 MG TAB PO SCH (09:00)
[2018-11-01] MEDS: GABAPENTIN 100 MG CAP PO SCH ×3 (09:00→20:07)
[2018-11-01] MEDS: MULTIVITAMIN TAB PO SCH (09:00)
[2018-11-01] MEDS: TERBINAFINE HCL 250 MG TAB PO SCH ×2 (09:01→20:07)
[2018-11-01] MEDS: TRAVOPROST Z 0.004% OPH SOLN 2.5 ML BTL OPB SCH ×2 (09:01→20:09)
[2018-11-01] MEDS: FLUTICASONE PROPIONATE NA SPR 16 GM BTL SCH ×2 (09:01→20:08)
--- NOTE | 2018-11-01 10:16 | Hospitalist Progress Note ---
Date of Service November 01, 2018 Assessment & Plan (1) S/P shoulder replacement: This is a 73yo F with a PMH of HTN, HLD, asthma, hypothyroidism, mood disorder and recurrent shoulder dislocation who is POD#2 s/p R reverse TSA by Dr. Thomas. -POD#2 s/p R reverse TSA by Dr. Thomas -Pt is doing well post-operatively except post op pain -Per ortho for pain control, wound care, anticoagulation and activities -Monitor H&H (baseline hgb of 13.3/39.5 on 10/29/18) -Continue incentive spirometry, PT/OT when appropriate (2) Acute blood loss anemia: -H/H 12.3 and 38.1 -Preop 13.3/39.5 -Monitor CBC H/H trending up (3) Leukocytosis: -WBC 13.94k -Afebrile and asymptomatic -Likely in setting of postop along with receiving Decadron preop -follow temperature curve (4) Traumatic open wound of right lower leg with delayed healing: H/o recent Fusarium infection of RLE, following with wound care and ID -Continue Lamisol BID -Wound care on board (5) HTN (hypertension): Blood pressure labile throughout admission, pain likely playing factor. Currently 152/77 Continue Losartan if remains elevated titrate up (6) Hypothyroid: Continue levothyroxine (7) Asthma: Stable. Continue Breo Ellipta inh, Albuterol inh PRN (8) Glaucoma: Continue eyedrops Slight right conjunctival irritation today but without symptoms (9) Fibromyalgia: Follows with Dr. Swartz (s/p spinal surgery in 2015) and Dr. Avalos of neuro for pain management -On nerve stimulator -Continue home dose Neurontin, Sinemet, Requip, baclofen -Monitor cognitive and respiratory status closely while also receiving narcotics (10) Restless leg syndrome: -Follows with Dr. Swartz (s/p spinal surgery in 2015) and Dr. Avalos of neuro for pain management -On nerve stimulator -Continue home dose Neurontin, Requip (11) Depression: Continue SNRI PCP: [place] Dispo: Per primary service Patient seen in collaboration with Dr. Sanabria. Please see addendum. Thank you for this consultation. We will follow the patient with you during their hospital stay. You can reach a member of the [facility] Hospitalist Team 24/7 via pager @ [phone]. Supervising Physician Co-Signing Physician Notes Pt was seen and examined. Agreed with Mckayla CALDWELL exam, assessment and plan. S/P day #[address] Thomas. No post op complication. Con tinue pain control. Incentive spirometry. Fall precaution. Continue PT/OT as per ortho recommendation. MD Daniele Subjective Patient was seen and examined at bedside in room 313. Follow-up Right reverse total shoulder arthroplasty POD #[address] Thomas. Continues to have R shoulder pain. "Nothing I take is working." Feels she still isn't doing well but is hopeful to go to rehab if approved or home today. She denies any fever,chills, sweats, dizziness, chest pain, sob, cough, n/v/d. She is passing gas. Urinating w/o difficultly. Appetite and PO intake is normal per patient. Review of Systems Review of Systems: As noted per HPI, 10 systems reviewed and negative unless noted above. Physical Exam Physical Exam: Gen: WD/WN, Elderly F, sitting up in bedside chair, NAD, A&O x3, HEENT: Normocephalic, atraumatic, conjunctivae moist, sclerae anicteric, mucous membranes moist. Lung: Clear to Auscultation bilaterally, no wheezes/rales/rhonchi Heart: Regular rate, regular rhythm, no murmurs, rubs, or gallops Abdomen: Soft, NT, ND +BS x 4 Extremities: No edema, RLE with Compression dressing in place, R shoulder with dressing CDI Skin: Warm, no rash, negative turgor. Results & Data Vital Signs (Past 12 Hours) Vital Signs Temp Pulse Resp BP Pulse Ox 11/01/18 08:58 65 152/77 H 11/01/18 07:35 36.5 C 58 L 15 117/67 93 11/01/18 02:15 126/78 10/31/18 23:40 36.7 C 64 17 172/75 H 92 Laboratory Results Short CBC 11/01/18 Range/Units 06:34 WBC 13.94 H (4.8-10.8) K/uL Hgb 12.3 (12.0-16.0) g/dL Hct 38.1 (37-47) % Plt Count 401 H (130-400) K/uL BMP 11/01/18 06:34 Sodium 137 Potassium 3.9 Chloride 105 Carbon Dioxide 26 BUN 28 H D Creatinine 0.64 Glucose 105 H Calcium 8.8 Medications Administered Hydrocodone Bitart/Acetaminophen ([place] 5/325) 1 - 2 tab PO Q4H PRN PRN Reason: Pain Stop: 11/13/18 13:15 Last Admin: 11/01/18 06:08 Dose: 2 tab Documented by: [id number] Admin: 11/01/18 00:03 Dose: 2 tab Documented by: [id number] Admin: 10/31/18 19:50 Dose: 2 tab Documented by: [id number] Admin: 10/31/18 08:57 Dose: 2 tab Documented by: [id number] Admin: 10/31/18 01:57 Dose: 2 tab Documented by: [id number] Aspirin (Ecotrin Ectab) 81 mg PO QAM [facility] Stop: 11/30/18 08:59 Last Admin: 10/31/18 08:55 Dose: 81 mg Documented by: [id number] Baclofen (Lioresal) 20 mg PO [facility] Stop: 11/29/18 20:59 Last Admin: 10/31/18 20:56 Dose: 20 mg Documented by: [id number] Admin: 10/30/18 20:38 Dose: 20 mg Documented by: [id number] Brinzolamide (Azopt) 1 drops OP [facility] Stop: 11/29/18 20:59 Last Admin: 10/31/18 20:58 Dose: 1 drops Documented by: [id number] Admin: 10/30/18 20:39 Dose: 1 drops Documented by: [id number] Carbidopa/Levodopa (Sinemet 25/100 Mg) 1 tab PO QID [facility] Stop: 11/29/18 13:15 Last Admin: 11/01/18 09:00 Dose: 1 tab Documented by: [id number] Admin: 10/31/18 20:56 Dose: 1 tab Documented by: [id number] Admin: 10/31/18 16:15 Dose: 1 tab Documented by: [id number] Admin: 10/31/18 13:52 Dose: 1 tab Documented by: [id number] Admin: 10/31/18 08:55 Dose: 1 tab Documented by: [id number] Admin: 10/30/18 20:38 Dose: 1 tab Documented by: [id number] Admin: 10/30/18 17:56 Dose: 1 tab Documented by: [id number] Admin: 10/30/18 14:48 Dose: 1 tab Documented by: [id number] Docusate Sodium (Colace) 100 mg PO BID [facility] Stop: 11/29/18 20:59 Last Admin: 11/01/18 08:59 Dose: 100 mg Documented by: [id number] Admin: 10/31/18 20:56 Dose: 100 mg Documented by: [id number] Admin: 10/31/18 08:56 Dose: 100 mg Documented by: [id number] Admin: 10/30/18 20:38 Dose: 100 mg Documented by: [id number] Duloxetine HCl (Cymbalta) 60 mg PO QAM [facility] Stop: 11/30/18 08:59 Last Admin: 11/01/18 09:00 Dose: 60 mg Documented by: [id number] Admin: 10/31/18 08:55 Dose: 60 mg Documented by: [id number] Fluticasone Propionate (Flonase) 2 sprays NA BID [facility] Stop: 11/29/18 20:59 Last Admin: 11/01/18 09:01 Dose: 2 sprays Documented by: [id number] Admin: 10/31/18 20:58 Dose: 2 sprays Documented by: [id number] Admin: 10/31/18 08:56 Dose: 2 sprays Documented by: [id number] Admin: 10/30/18 20:38 Dose: 2 sprays Documented by: [id number] Gabapentin (Neurontin) 800 mg PO TID [facility] Stop: 11/29/18 13:59 Last Admin: 11/01/18 09:00 Dose: 800 mg Documented by: [id number] Admin: 10/31/18 20:57 Dose: 800 mg Documented by: [id number] Admin: 10/31/18 13:52 Dose: 800 mg Documented by: [id number] Admin: 10/31/18 08:55 Dose: 800 mg Documented by: [id number] Admin: 10/30/18 20:38 Dose: 800 mg Documented by: [id number] Admin: 10/30/18 14:48 Dose: 800 mg Documented by: [id number] Gabapentin (Neurontin) 100 mg PO TID [facility] Stop: 11/29/18 13:59 Last Admin: 11/01/18 09:00 Dose: 100 mg Documented by: [id number] Admin: 10/31/18 20:57 Dose: 100 mg Documented by: [id number] Admin: 10/31/18 13:52 Dose: 100 mg Documented by: [id number] Admin: 10/31/18 08:55 Dose: 100 mg Documented by: [id number] Admin: 10/30/18 20:38 Dose: 100 mg Documented by: [id number] Admin: 10/30/18 14:48 Dose: 100 mg Documented by: [id number] Hydromorphone HCl (Dilaudid) 0.5 mg IV Q4H PRN PRN Reason: Pain Stop: 11/13/18 13:15 Last Admin: 10/31/18 15:12 Dose: 0.5 mg Documented by: [id number] Admin: 10/31/18 05:00 Dose: 0.5 mg Documented by: [id number] Admin: 10/31/18 00:59 Dose: 0.5 mg Documented by: [id number] Levothyroxine Sodium (Synthroid) 25 mcg PO DAILYBB [facility] Stop: 11/30/18 06:29 Last Admin: 11/01/18 06:10 Dose: 25 mcg Documented by: [id number] Admin: 10/31/18 05:35 Dose: 25 mcg Documented by: [id number] Losartan Potassium (Cozaar) 25 mg PO QAM [facility] Stop: 11/30/18 08:59 Last Admin: 11/01/18 09:00 Dose: 25 mg Documented by: [id number] Admin: 10/31/18 08:56 Dose: 25 mg Documented by: [id number] Miscellaneous (Order Awaiting Action) 1 ea N/A QS [facility] Stop: 11/29/18 15:59 Last Admin: 11/01/18 09:02 Dose: Not Given Documented by: [id number] Admin: 11/01/18 01:38 Dose: Not Given Documented by: [id number] Admin: 10/31/18 16:00 Dose: Not Given Documented by: [id number] Admin: 10/31/18 08:48 Dose: Not Given Documented by: [id number] Admin: 10/31/18 00:54 Dose: Not Given Documented by: [id number] Admin: 10/30/18 15:51 Dose: Not Given Documented by: [id number] Montelukast Sodium (Singulair) 10 mg PO [facility] Stop: 11/29/18 20:59 Last Admin: 10/31/18 20:58 Dose: 10 mg Documented by: [id number] Admin: 10/30/18 20:38 Dose: 10 mg Documented by: [id number] [facility]ivitamins ([facility]ivitamin Tab) [facility] [place]: 11/30/18 08:59 Last Admin: 11/01/18 09:00 Dose: 1 tab Documented by: [id number] Admin: 10/31/18 08:55 Dose: 1 tab Documented by: [id number] Ropinirole HCl (Requip) 0.5 mg PO [facility] Stop: 11/29/18 20:59 Last Admin: 10/31/18 20:58 Dose: 0.5 mg Documented by: [id number] Admin: 10/30/18 20:38 Dose: 0.5 mg Documented by: [id number] Sennosides (Senokot) 17.2 mg PO [facility] Stop: 11/29/18 20:59 Last Admin: 10/31/18 20:58 Dose: 17.2 mg Documented by: [id number] Admin: 10/30/18 20:38 Dose: 17.2 mg Documented by: [id number] Terbinafine HCl (Lamisil) 250 mg PO BID [facility] Stop: 11/29/18 20:59 Last Admin: 11/01/18 09:01 Dose: 250 mg Documented by: [id number] Admin: 10/31/18 20:57 Dose: 250 mg Documented by: [id number] Admin: 10/31/18 08:55 Dose: 250 mg Documented by: [id number] Admin: 10/30/18 20:38 Dose: 250 mg Documented by: [id number] Discontinued Medications Acetaminophen (Tylenol) 1,000 mg PO PREOP [facility] Stop: 10/30/18 18:00 Last Admin: 10/30/18 08:21 Dose: Not Given Documented by: [id number] Bacitracin (Bacitracin) Confirm Administered Dose 50,000 units .ROUTE .STK-MED ONE Stop: 10/30/18 07:20 Last Admin: 10/30/18 11:23 Dose: 50,000 units Documented by: [id number] Celecoxib (Celebrex) 200 mg PO PREOP [facility] Stop: 10/30/18 18:00 Last Admin: 10/30/18 08:20 Dose: 200 mg Documented by: [id number] Dexamethasone (Decadron) 8 mg PO PREOP [facility] Stop: 10/30/18 18:00 Last Admin: 10/30/18 08:20 Dose: 8 mg Documented by: [id number] Famotidine (Pepcid) 20 mg PO PREOP [facility] Stop: 10/30/18 18:00 Last Admin: 10/30/18 08:20 Dose: 20 mg Documented by: [id number] Gabapentin (Neurontin) 300 mg PO PREOP [facility] Stop: 10/30/18 18:00 Last Admin: 10/30/18 08:21 Dose: Not Given Documented by: [id number] Cefazolin Sodium (Ancef 1000mg) 1,000 mg in 7.5 mls @ 2.5 mls/min IV PREOP URI; Protocol Stop: 10/30/18 18:00 Last Admin: 10/30/18 13:18 Dose: Not Given Documented by: [id number] Lactated Ringer's (Lr) 1,000 mls @ 15 mls/hr IV .Q24H URI Stop: 10/31/18 05:59 Last Infusion: 10/30/18 08:59 Dose: 0 mls/hr Documented by: [id number] Admin: 10/30/18 07:45 Dose: 15 mls/hr Documented by: [id number] Cefazolin Sodium (Ancef 1000mg) 1,000 mg in 7.5 mls @ 2.5 mls/min IV ONCE ONE Stop: 10/30/18 09:41 Last Admin: 10/30/18 08:59 Dose: 2.5 mls/min Documented by: [id number] Cefazolin Sodium (Ancef 1000mg) 1,000 mg in 7.5 mls @ 2.5 mls/min IV Q8H URI; Protocol Stop: 10/31/18 01:02 Last Admin: 10/31/18 00:59 Dose: 2.5 mls/min Documented by: [id number] Admin: 10/30/18 17:56 Dose: 2.5 mls/min Documented by: [id number] Sodium Chloride (Nss 1000ml) 1,000 mls @ 100 mls/hr IV .Q10H URI Stop: 10/31/18 06:00 Last Infusion: 10/30/18 22:50 Dose: 0 mls/hr Documented by: [id number] Infusion: 10/30/18 22:01 Dose: 100 mls/hr Documented by: [id number] Admin: 10/30/18 13:05 Dose: 100 mls/hr Documented by: [id number] Metoclopramide HCl (Reglan) 10 mg PO PREOP [facility] Stop: 10/30/18 18:00 Last Admin: 10/30/18 08:20 Dose: 10 mg Documented by: [id number]
[2018-11-01] MEDS: ASPIRIN 81 MG ECTAB PO SCH (10:19)
--- NOTE | 2018-11-01 15:03 | Orthopedic Progress Note ---
Date of Service November 01, 2018 Assessment & Plan (1) S/P shoulder replacement: POD #2, Right Reversed TSA Limited PT/ OT DVT proph- ASA D/C planning-planning for [facility] if authorization given. As per medicine- monitor mental status, respiratory status stable. Subjective POD 1 s/p Right Reverse TSA Patient is currently sitting in her chair at the bedside. She states that she is having pain off and on today. She denies shortness of breath, chest pain, lightheadedness. States that she is going to [facility] tomorrow. Physical Exam Physical Exam: Dressings are clean, dry, intact. Neurovascular is intact. She has good range of motion of her wrist and fingers. Results & Data Vital Signs (Past 12 Hours) Vital Signs Temp Pulse Resp BP Pulse Ox 11/01/18 08:58 65 152/77 H 11/01/18 07:35 36.5 C 58 L 15 117/67 93 Laboratory Results Laboratory Results WBC 13.94 K/uL (4.8-10.8) H 11/01/18 06:34 RBC 4.05 M/uL (4.2-5.4) L 11/01/18 06:34 Hgb 12.3 g/dL (12.0-16.0) 11/01/18 06:34 Hct 38.1 % (37-47) 11/01/18 06:34 MCV 94.1 fL (80-100) 11/01/18 06:34 MCH 30.4 pg (25-34) 11/01/18 06:34 MCHC 32.3 g/dL (32-36) 11/01/18 06:34 RDW Std Deviation 49.7 fL (36.4-46.3) H 11/01/18 06:34 RDW Coeff of Gab 14.5 % (11.5-14.5) 11/01/18 06:34 Plt Count 401 K/uL (130-400) H 11/01/18 06:34 MPV 8.9 fL (7.4-10.4) 11/01/18 06:34 Immature Gran % (Auto) 0.3 % 11/01/18 06:34 Neut % (Auto) 70.0 % 11/01/18 06:34 Lymph % (Auto) 18.7 % 11/01/18 06:34 Bertie % (Auto) 9.1 % 11/01/18 06:34 Eos % (Auto) 1.6 % 11/01/18 06:34 Baso % (Auto) 0.3 % 11/01/18 06:34 Immature Gran # (Auto) 0.04 K/uL (0.00-0.02) H 11/01/18 06:34 Neut # (Auto) 9.76 K/uL (1.4-6.5) H 11/01/18 06:34 Lymph # (Auto) 2.61 K/uL (1.2-3.4) 11/01/18 06:34 Bertie # (Auto) 1.27 K/uL (0.11-0.59) H 11/01/18 06:34 Eos # (Auto) 0.22 K/uL (0-0.5) 11/01/18 06:34 Baso # (Auto) 0.04 K/uL (0-0.2) 11/01/18 06:34 Hypersegmented Neuts 1+ 10/31/18 06:06 Sodium 137 mmol/L (136-145) 11/01/18 06:34 Potassium 3.9 mmol/L (3.5-5.1) 11/01/18 06:34 Chloride 105 mmol/L (98-107) 11/01/18 06:34 Carbon Dioxide 26 mmol/L (21-32) 11/01/18 06:34 Anion Gap 6.0 (3-11) 11/01/18 06:34 BUN 28 mg/dl (7-18) H D 11/01/18 06:34 Creatinine 0.64 mg/dl (0.6-1.2) 11/01/18 06:34 Est Cr Clr Drug Dosing 69.2 ml/min 11/01/18 06:34 Est GFR ( Amer) 101.9 11/01/18 06:34 Est GFR (Non-Af Amer) 87.9 11/01/18 06:34 BUN/Creatinine Ratio 44.2 (10-20) H 11/01/18 06:34 Glucose 105 mg/dl (70-99) H 11/01/18 06:34 Calcium 8.8 mg/dl (8.5-10.1) 11/01/18 06:34 Blood Type A Positive 10/29/18 18:24 Antibody Screen NEGATIVE 10/29/18 18:24
[2018-11-01] MEDS: MONTELUKAST SODIUM 10 MG TABLET PO SCH (20:07)
[2018-11-01] MEDS: SENNA 8.6 MG TAB PO SCH (20:07)
[2018-11-01] MEDS: BACLOFEN 10 MG TAB PO SCH (20:07)
[2018-11-01] MEDS: ROPINIROLE HCL 0.25 MG TABLET PO SCH (20:07)
[2018-11-01] MEDS: BRINZOLAMIDE (AZOPT) OPS 10 ML BTL OP SCH (20:09)
[2018-11-02] MEDS: BREO ~ ORDER AWAITING ACTION SCH ×2 (00:25→08:13)
[2018-11-02] MEDS: HYDROCODONE/ACETAMOPHEN 5/325MG TAB PO PRN ×2 (02:53→08:26)
[2018-11-02] MEDS: HYDROmorphone INJ 0.5 MG/0.5 ML SYR IV PRN (04:11)
[2018-11-02] MEDS: LEVOTHYROXINE SODIUM 25 MCG TABLET PO SCH (06:29)
[2018-11-02] MEDS: DOCUSATE SODIUM 100 MG CAP PO SCH (08:13)
[2018-11-02] MEDS: FLUTICASONE PROPIONATE NA SPR 16 GM BTL SCH (08:20)
[2018-11-02] MEDS: MULTIVITAMIN TAB PO SCH (08:21)
[2018-11-02] MEDS: ASPIRIN 81 MG ECTAB PO SCH (08:21)
[2018-11-02] MEDS: DULOXETINE HCL 60 MG CAP PO SCH (08:21)
[2018-11-02] MEDS: CARBIDOPA/LEVODOPA 25/100MG TAB PO SCH (08:21)
[2018-11-02] MEDS: GABAPENTIN 800 MG TAB PO SCH (08:21)
[2018-11-02] MEDS: GABAPENTIN 100 MG CAP PO SCH (08:21)
[2018-11-02] MEDS: TERBINAFINE HCL 250 MG TAB PO SCH (08:21)
[2018-11-02] MEDS: LOSARTAN POTASSIUM 25 MG TAB PO SCH (08:21)
[2018-11-02] MEDS: TRAVOPROST Z 0.004% OPH SOLN 2.5 ML BTL OPB SCH (08:22)
--- NOTE | 2018-11-02 09:01 | Orthopedic Progress Note ---
Date of Service November 02, 2018 Assessment & Plan (1) S/P shoulder replacement: POD #3 Right Reversed TSA Limited PT/ OT DVT proph- ASA D[facility]. As per medicine- monitor mental status, respiratory status stable. Subjective POD 3 s/p Right Reverse TSA Patient is currently sitting in her chair at the bedside eating breakfast. She states that she is having pain off and on today. She denies shortness of breath, chest pain, lightheadedness. States that [facility]. Physical Exam Physical Exam: Right shoulder dressings c/d/i, no drainage, sling in tact, fingers mobile. A&Ox3. Results & Data Vital Signs (Past 12 Hours) Vital Signs Temp Pulse Resp BP Pulse Ox 11/02/18 06:15 36.4 C L 65 16 126/82 93 11/01/18 23:30 36.3 C L 73 16 146/74 H 95
--- NOTE | 2018-11-04 14:01 | Discharge Summary ---
DISCHARGE DIAGNOSES: Right shoulder anterior dislocation, Hill-Sachs bony Bankart lesions with chronic rotator cuff tear and ruptured long head of the biceps tendon. SECONDARY DIAGNOSES: Hypertension, hypercholesterolemia, asthma, sleep apnea, peripheral neuropathy, hypothyroidism, anemia, osteoarthritis of the spine, sciatica, gastroesophageal reflux disease, obesity. CONSULTS: Brittney Zhang PA-C/Gisselle Sandy DO COMPLICATIONS: None. PROCEDURES: Right reverse total shoulder arthroplasty by Dr. Thomas on 10/30/2018. BRIEF HISTORY: As dictated in the history and physical. HOSPITAL SUMMARY: The patient was admitted on the above-noted date and had the above-noted surgery performed, which she tolerated well. Postoperatively, [facility] service was consulted for postoperative medical management and continued to follow the patient during her stay. On her first postoperative day, she was remaining afebrile, blood pressure was ranging from 151 SBP to 171 and was managed per [facility] service. She had no complaints that morning, denied shortness of breath, chest pain, nausea, vomiting. Pain was controlled. Dressings were clean, dry and intact. She had no drainage. Drain was intact. Fingers were mobile. Sling was intact. She was awake and responding appropriately, but was somewhat somnolent at times. She was started on her PT and OT protocols, continued on DVT prophylaxis and pain management and medical management per [facility] service. By her second postoperative day, she was currently seen in her chair at the bedside and stated that she was having pain off and on. Denies shortness of breath, chest pain or lightheadedness and states that she was going to [facility] the following day. Dressings clean and dry and intact. Neurovascular was intact. She had good range of motion of her wrist and fingers. Vital signs were remaining stable and she was afebrile, hemoglobin was 12.3. The patient's was in the room as well and was taking care of a chronic leg wound on her right lower extremity which he normally takes care of her at home and she was continued on her protocol. By her third postoperative day, she was up again eating breakfast in her chair, states she was having pain off and on. Denied shortness of breath, chest pain or lightheadedness. States that she is going to [facility]. Shoulder dressings were clean, dry and intact. No drainage. Sling was intact. Fingers were mobile. Vital signs were stable. She was afebrile. She was remaining medically stable as well as orthopedically stable and it was felt she could be transferred to skilled facility on 11/02/2018. For further review, please see chart. LABORATORY AND X-RAY DATA: As per chart. DISCHARGE INSTRUCTIONS: The patient was discharged to [facility] on 11/10/2018. Diet: Regular. Activity: Nonweightbearing, right upper extremity, no lifting. Instructions: Please consult wound care nurse for continued wound care for the right lower extremity. Follow reverse total shoulder arthroplasty instructions and follow up with Dr. Thomas in 2 weeks. The patient is to call for appointment if one has not been made for you. DISCHARGE MEDICATIONS: Aspirin 81 mg p.o. q.a.m., cefadroxil 500 mg p.o. b.i.d., hydrocodone/acetaminophen 1 tab p.o. 4 hours p.r.n. Resume home meds as listed and stop taking previous acetaminophen, previous [place] and meloxicam.
== END 2018-11-02 10:44 | DRG 483 ==
LOC: ASU 06:35 → 3E 11:53 → SUATTDRO 11:53